=== PATIENT | male | born 1945 | race Caucasian/White ===

== ENCOUNTER → 2019-08-22 15:43 | Outpatient (CLI) | payer MEDICARE, SELFPAY ==
--- NOTE | 2019-08-22 15:46 | CT_ITS ---
CT lower extremity INDICATION: Treatment planning exam COMPARISON: None. TECHNIQUE: Helical axial scans were performed. Coronal reformat images were obtained through the abdomen and pelvis, as well as coronal and sagittal reformats were performed. CT scan done according to ALARA (As Low As Reasonably Achievable). CONTRAST: No contrast was administered. FINDINGS: There are degenerative changes in the lower lumbar spine. SI joints are normal. There is severe degenerative change in the right hip with cystic and sclerotic change and extensive osteophytosis. Left hip is intact and unremarkable. Soft tissues are intact. There is leg discrepancy with the right leg appearing shorter than the left. CT/Extremity Lower without Contra IMPRESSION: Treatment planning scan. Severe right hip degenerative disease. Electronically Signed: Brissa López, at 20:08 EST Tel , Service support ,
== END ==
PROVIDERS: PCP Family Medicine; Referring Provider Specialist; Visit Provider Specialist
DX: M16.11 Unilateral primary osteoarthritis, right hip (principal)
CPT/HCPCS: 73700

== ENCOUNTER 2019-09-11 08:11 | Inpatient (IN) | payer MEDICARE, SELFPAY ==
[2019-08-22 15:12] VITALS: BP 154/81; PULSE 82; RESP 16; TEMP 36.6; O2SAT 98; BMI 33.0
--- NOTE | 2019-08-22 15:20 | SDCEKG_ITS ---
Test Reason : Blood Pressure : / mmHG Vent. Rate : 076 BPM Atrial Rate : 076 BPM P-R Int : 184 ms QRS Dur : 090 ms QT Int : 394 ms P-R-T Axes : 045 014 029 degrees QTc Int : 443 ms Normal sinus rhythm Normal ECG Confirmed by IDALIA FIGUEROA, PORTILLO ([id number]), tape editor JEANETTE LUCAS ([id number]) on 08/26/2019 10:49:31 AM Referred By: Foster Walker Confirmed By:SHERRIE FRIEDMAN MD
[2019-08-22 16:03] LABS: Absolute Lymphocyte Count 2.74 X10^3/uL (0.83-4.51); Absolute Neutrophil Count 8.1 X10^3/uL (2.0-7.7); Basophil# 0.05 X10^3/uL; Basophil% 0.4 % (0-1); Eosinophil# 0.24 X10^3/uL; Hematocrit 46.6 % (40-54); Hemoglobin 15.3 g/dL (13.0-16.5); Lymphocyte # 2.74 X10^3/ul (4.0); Lymphocyte % 22.6 % (19-41); Mean Corp Hgb Conc 32.8 g/dL (32-36); Mean Corpuscular Hgb 28.7 pg (27.0-32.0); Mean Corpuscular Volume 87.3 fL (80-94); Mean Platelet Vol. 10.4 fl (6.2-12.0); Monocyte# 0.88 X10^3/uL; Monocyte% 7.3 % (0-10); NRBC Flagged by Analyzer 0 % (0-5); Neutrophil # 8.14 X10^3/uL (2.7-7.7); Neutrophil % 67.3 % (47-70); Platelet Count 270 K/mm3 (150-450); RBC Distribution Width SD 41.5 fl (35.1-43.9); Red Blood Count 5.34 M/mm3 (4.6-6.2); White Blood Count 12.1 K/mm3 (4.4-11.0)
--- NOTE | 2019-08-23 12:55 | PCM.HP.BLA ---
History and Physical History and Physical [facility] Patient Name: Nathan Robertson : 1945 From: MARIANNE MONTAÑO PA-C DATE OF SURGERY: 09/11/2019 SCHEDULED PROCEDURE: right total hip arthroplasty HISTORY OF PRESENT ILLNESS: Preoperative history and physical exam was performed on August 22, 2019. This is a 73-year-old male who has been having ongoing pain in the right hip for over 3 years. Pain is been intermittent, aching, dull. Pain can reach as high as a 5/10 with activity. Patient does have start up pain. Pain is located over the lateral hip. It occasionally wakes him at night. Patient has difficult time with activities of daily living due to the pain. He has difficulty putting socks and shoes on. Patient does have sensation of catching in the right hip with range of motion. Patient has used [id number] naproxen with minimal relief. He denies previous surgery on the right hip. Patient has been using a cane for the past 2 months due to the pain. We are obtaining surgical clearance from the primary care physician Dr. Livingston. Patient currently denies any chest pain, shortness of breath, fevers chills, recent infections. Patient has medical history pertinent for hypertension. After failing conservative measures and discussing treatment options with Dr. Foster Walker, patient does wish to proceed with a right total hip arthroplasty. REVIEW OF SYSTEMS: ROS: Const: Denies change in appetite, fever and weight change. CV: Denies chest pain, heart murmur and irregular heartbeat. Resp: Denies cough, pneumonia, shortness of breath, tuberculosis and wheezing. GI: Denies constipation, diarrhea, heartburn, nausea, rectal itching, bloody stools and vomiting. : Denies incontinence. Musculo: Denies leg swelling, pain, trouble walking and weakness. Skin: Denies Raynaud's, history of shingles and tattoo. Neuro: Denies ambulatory dysfunction, dizziness, numbness/tingling and tremor. Psych: Denies anxiety, insomnia and stress. Khalif/Lymph: Denies anemia, bleeding/bruising tendency and past transfusion. Reviewed, no changes. PAST MEDICAL HISTORY: Advance Care Plan: Other Directive, LIVING WILL Effective Date: 07/22/2019 Other Directive, POA Effective Date: 07/22/2019 PMH: Medical Problems: Arthritis, High Blood Pressure, Hypercholesterolemia Accidents: None Surgical Hx: None Anesthesia Complications: None Assistive Devices: Glasses, Cane Reviewed, no changes. SOCIAL HISTORY: SH: Marital: .Occupation: Retired.Work Status: Retired.Hand Dominance: Left-handed. Personal Habits: Cigarette Use: Former.Smokeless Tobacco: Never Used Smokeless Tobacco.E-Cigarette Use: Never used.Alcohol: Occasionally.Drug Use: Denies Use.Enjoy Exercising: Daily. Reviewed, no changes. VITALS: Ht: 69 Wt: 216lb Wt k.978 BMI: 31.9 BP: 172/92 Pulse: 56 Resp: 14 T: 97.9 T: 36.6C ALLERGIES: No Known Drug Allergy MEDICATIONS: Simvastatin 20 mg 1 by mouth every day, Amlodipine Besylate 5 mg 1 by mouth every day, Lisinopril-Hydrochlorothiazide 20-25 mg 1 tab by mouth daily PRE-OP EXAM: General appearance:NORMAL Other: Eyes: Conjunctivae and lids: NORMAL Pupils: ERR Ears, Nose, Mouth, and Throat: NORMAL Other: Inspection of lips, teeth and gums: NORMAL Other: Neck: Examination of neck: no masses noted. Respiratory: Assessment of respiratory effort: NORMAL Other: Auscultation of lungs: clear to auscultation no wheezes, rhonchi or rales. Cardiovascular: Auscultation of heart: regular rate and rhythm, no murmurs, gallops or rubs. Exam of carotid arteries: NORMAL Other: Gastrointestinal: Exam of abdomen: soft, nontender, nondistended bowel sounds present. PHYSICAL EXAMINATION: Patient does walk with an antalgic gait. Right hip is cool to touch without erythema. Patient has obligatory external rotation with flexion on the right. Tenderness palpation of the right lateral hip. Right hip flexion 60, internal rotation 25, external rotation 35. There is 5 mm shorter on the right when compared to the left with regards to leg lengths. Sensation intact to light touch. IMAGING STUDIES: X-rays of the right hip reveal joint space narrowing with subchondral sclerosis and osteophyte formation consistent with severe hypertrophic osteoarthritis. There is been progressive worsening of the osteoarthritis when compared to previous films. IMPRESSION: 1. Severe right hip osteoarthritis 2. Hypertension 3. Hypercholesterolemia PLAN: Dr. Foster Walker did discuss and review with the patient all treatment options including surgical versus nonsurgical options. Patient does wish to proceed with the above-stated procedure. Potential risks, benefits, and complications of the procedure were discussed in detail including but not limited to , infection, nerve and blood vessel damage, persistent pain, numbness, tingling, paresthesias, blood clot, pulmonary embolism, and requirement for possible further surgery. The patient expressed full understanding and has no further questions for the doctor. Patient does agree to proceed with the above-stated procedure and has signed the surgery consent form. This dictation was created using voice recognition software. Phonetic and/or grammatical errors may exist. ___ I have re-examined the patient. There are no clinical changes since date of exam. ___ See progress notes for changes. ___ Dictated on admission Date: Time: Signature:
[2019-09-02 12:16] LABS: Absolute Lymphocyte Count 2.54 X10^3/uL (0.83-4.51); Absolute Neutrophil Count 5.8 X10^3/uL (2.0-7.7); Basophil# 0.07 X10^3/uL; Basophil% 0.8 % (0-1); Eosinophil# 0.19 X10^3/uL; Eosinophils% 2.1 % (0-5); Hematocrit 47.9 % (40-54); Hemoglobin 15.3 g/dL (13.0-16.5); Lymphocyte # 2.54 X10^3/ul (4.0); Lymphocyte % 27.4 % (19-41); Mean Corp Hgb Conc 31.9 g/dL (32-36); Mean Corpuscular Hgb 28.1 pg (27.0-32.0); Mean Corpuscular Volume 88.1 fL (80-94); Mean Platelet Vol. 10.5 fl (6.2-12.0); Monocyte# 0.62 X10^3/uL; Monocyte% 6.7 % (0-10); NRBC Flagged by Analyzer 0 % (0-5); Neutrophil # 5.81 X10^3/uL (2.7-7.7); Neutrophil % 62.7 % (47-70); Platelet Count 265 K/mm3 (150-450); RBC Distribution Width CV 12.9 % (11.6-14.6); Red Blood Count 5.44 M/mm3 (4.6-6.2); White Blood Count 9.3 K/mm3 (4.4-11.0)
[2019-09-11] VITALS (10 sets, daily range): BP systolic 108–150; BP diastolic 54–99; PULSE 82–105; RESP 16–18; TEMP 36.2–36.7; O2SAT 94–100; BMI 33.0
[2019-09-11] MEDS: Lactated Ringers 1,000 ML 125 ML IV ×2 (07:10→13:15)
[2019-09-11] MEDS: Scopolamine 1mg/72hr Patch 1 PATCH TD (07:15)
[2019-09-11] MEDS: Lactated Ringers 1,000 ML 999 ML IV (09:10)
[2019-09-11] MEDS: Celecoxib 200 MG Capsule 400 MG PO (09:11)
[2019-09-11] MEDS: Acetaminophen 500 MG Tablet 1000 MG PO ×3 (09:12→21:01)
[2019-09-11] MEDS: Gabapentin 600 MG Tablet PO (09:12)
[2019-09-11 09:26] LABS: Bedside Glucose 94 mg/dL (70-110)
[2019-09-11] MEDS: dexAMETHasone 10 MG/ML Vial IV (10:15)
[2019-09-11] MEDS: Cefazolin 2 GM in 0.9% Normal Saline 100 ML IV (10:15)
--- NOTE | 2019-09-11 10:15 | RAD_ITS ---
STUDY: X-RAY - PELVIS AND RIGHT HIP REASON FOR EXAM: Male, 73 years old. ANTERIOR TOTAL HIP TECHNIQUE: 4 views of the right hip. COMPARISON: Previous CT scan of the pelvis obtained on 08/22/2019 FINDINGS: 4 fluoroscopic images were obtained during a total hip replacement. Eventually the acetabular and femoral components of the total hip replacement were noted in place and appear to be in good position alignment. RAD/Hip 1 view with Pelvis IMPRESSION: A total right hip prosthesis was eventually noted in place in good position and alignment.. Electronically Signed: Hansel Mars, at 14:49 EST Tel , Service support ,
--- NOTE | 2019-09-11 12:20 | PCM.OPRPT ---
Report of Operation Date of Procedure: 09/11/19 Pre-Operative Diagnosis: Right hip primary osteoarthritis Post-Operative Diagnosis: Right hip primary osteoarthritis Surgery/Procedure Performed:: Right minimally invasive direct anterior robotic assisted total hip replacement Description of Surgical Findings:: Stable hip, equal leg lengths cognos architect: Lyn Mitchell Type of Anesthesia:: Spinal Anesthesiologist: Ayo Guillen Special Medications: Standard total joint antibiotics Specimen's removed: Bony cuts Estimated Blood Loss (mL): 150 Fluids Replaced: 100 mL crystalloid Description of Procedure: Components used: 1. Accolade 2 Cadence femoral stem size 6 127? 2. Cadence trident 2 acetabular shell size 56 mm 3. [place] X3 polyethylene F 4. Cadence Biolox delta 36 mm, 0 mm femoral head Brief history operative indications: 73 yo M who failed conservative measures for their hip osteoarthritis. X-rays were consistent with osteoarthritis including joint space narrowing, osteophyte formation and subchondral cysts. Total hip replacement was discussed with the patient with risks and benefits including but not limited to blood loss, DVTs, PEs, neurovascular damage, dislocation, general risks of anesthesia including loss of life. Patient demonstrated an understanding medical clearance is obtained the patient was consented for surgery. Procedure: On the date of procedure the patient's R hip was marked in the preoperative area. Patient was then taken back to the operating room where anesthesia assumed control of the C-spine and airway and administered anesthetic. Patient was transferred to the operating table and placed in the supine position. The hips were placed at the break of the bed and a sacral bump was placed. A checkpoint was placed on the tibial tubercle. The R lower extremity was then prepped out in a sterile fashion using chlorhexidine while the surgeon scrubbed. The PA was vital in the positioning of the patient. Upon reentering the room the R lower extremity was draped in the standard orthopedic fashion and the incision was marked. A timeout was called and everyone agreed upon the side, the site, the procedure be performed, antibody given, and patient's identity. 3 pins were placed in the right iliac crest with a small skin incision and blunt dissection down to the bone. After the skins were placed in a ray was placed for targeting. At this time left hip operative incision was made through skin, subcutaneous tissue, and fat down to fascia. The fascia was then incised and the TFL was retracted laterally. A retractor was placed on the lateral border of the femoral neck. Attention was directed to the inferior portion of the approach and all crossing vessels were identified and appropriately coagulated. A retractor was then placed on the medial portion of the femoral neck. The anterior capsule was then cleared of all soft tissue and then H shaped capsulotomy was made. The retractors were then placed inside the capsule. The checkpoint was placed. The checkpoints were registered. The femoral neck was identified and a cleanup cut was made. At this time a power corkscrew was used to remove the femoral head. Attention was then turned toward the acetabulum where the soft tissues were appropriately retracted and debrided. The acetabulum was registered. The robot was brought into the field sterilely and the acetabulum was reamed to 56 mm. A 56 mm cup was then selected and impacted into place. Acetabular liner was impacted into place and locking mechanism was verified. The position of the acetabular cup was then verified under live fluoroscopy. Attention was then turned to the femur. Soft tissue releases on the medial and lateral femoral neck were appropriately done, the leg was externally rotated and lateralized. A Muniz retractor was placed medially and proximally to the greater trochanter this allowed appropriate visualization and exposure of the femoral canal. Rongeour was then used to remove excess lateral bone. A canal finder and entry broach were used to open the proximal canal. Once we verified we were down the femoral canal we subsequently broached up to a size 6 femur. The appropriate neck was placed in the previously selected head was trialed with a 0 mm neck. Traction was pulled and the hip was reduced with internal rotation. Once it was appropriately reduced and stability was checked. There was minimal shuck, equal leg lengths and appropriate stability with hyperextension and external rotation as well as with 90? flexion and internal rotation. Fluoroscopy was then also used to verify the position of the components and leg lengths using the contralateral side for comparison. The trial components were then dislocated the proximal femur was again exposed and the components were removed from the wound. The final components were verified and opened. The wound was copiously irrigated out with normal saline. The acetabulum was checked for any residual debris. The final components were placed and impacted. Traction and internal rotation were again used to reduce the hip. After adequate reduction the hip remained stable with appropriate leg lengths. The final components were once again checked with live fluoroscopy and were found to be satisfactory. The wound was then copiously irrigated with normal saline once more, and hemostasis was obtained. Closure was then done using #1 Vicryl runner to close the fascia. A 2-0 vicryl interuppted sutures were used to close the subcutaneous skin. A 3-0 Monocryl and Steri-Strips were used for final skin closure. the pins were removed and pin sites closed. A sterile dressing was placed. Patient was awakened by anesthesia and transferred to the [facility]. Patient was then transferred to the PACU for recovery. Postoperative plan: Patient will get 24 hours postop antibiotics. Patient will get in-house physical therapy and will be weight-bear as tolerated. Patient will follow up in office in 2 weeks for a wound check and x-rays. - Complications No intraoperative complications - Admit VTE Documentation VTE Present on Admission: No VTE Mechan Device Prophylaxis: SCD's, Thigh High ARTEMIO Hose VTE Pharm Prophylaxis ordered?: Yes
--- NOTE | 2019-09-11 13:05 | RAD_ITS ---
STUDY: X-RAY - PELVIS AND RIGHT HIP REASON FOR EXAM: Postoperative right hip arthroplasty. TECHNIQUE: 2 views of the pelvis and hip. COMPARISON: Intraoperative images obtained the same day. FINDINGS: There is postoperative gas in the soft tissues. There is a corticated soft tissue ossification adjacent to the right greater trochanter. There is arthrosis of the sacroiliac joints bilaterally. Normal visualized bilateral iliac wings and visualized sacrum. Normal bilateral superior and inferior pubic rami. Normal pubic symphysis. Normal bilateral ischial tuberosities. There is a right total hip arthroplasty without evidence of complication. RAD/Hip Min 2 Views (Portable) IMPRESSION: Uncomplicated right total hip arthroplasty. Electronically Signed: Blayne Andrade MD at 14:54 EST Tel , Service support ,
[2019-09-11] MEDS: Famotidine 20 MG Tablet PO (15:51)
[2019-09-11] MEDS: Senna/Docusate Sodium 1 Tablet 2 TABLET PO ×2 (15:51→21:00)
[2019-09-11] MEDS: Ensure Surgery 237 ML LIQUID PO (18:03)
[2019-09-11] MEDS: Cefazolin 1 GM/50 ML BAG IV (18:03)
[2019-09-11] MEDS: Aspirin 81 MG TAB.CHEW PO (18:03)
[2019-09-11] MEDS: Atorvastatin Calcium 10 MG Tablet 5 MG PO (21:00)
[2019-09-12] MEDS: Cefazolin 1 GM/50 ML BAG IV (02:40)
[2019-09-12 02:45] VITALS: BP 140/74; PULSE 85; RESP 17; TEMP 36.8; O2SAT 95
[2019-09-12 05:31] LABS: Hematocrit 36.6 % (40-54); Hemoglobin 12.2 g/dL (13.0-16.5); Mean Corp Hgb Conc 33.3 g/dL (32-36); Mean Corpuscular Hgb 29.3 pg (27.0-32.0); Mean Corpuscular Volume 87.8 fL (80-94); Mean Platelet Vol. 10.3 fl (6.2-12.0); Platelet Count 220 K/mm3 (150-450); RBC Distribution Width CV 12.7 % (11.6-14.6); RBC Distribution Width SD 40.7 fl (35.1-43.9); Red Blood Count 4.17 M/mm3 (4.6-6.2); White Blood Count 17.8 K/mm3 (4.4-11.0)
[2019-09-12 05:55] LABS: Anion Gap 5 (5-15); BUN 16 mg/dL (7-18); Chloride 106 mmol/L (98-107); Creatinine, Serum 0.76 mg/dL (0.70-1.30); EST Glomerular Filtration Rate 107 mL/min (>60); Est Glom Filt Rate - Afr Amer 129 mL/min (>60); Estimated Creatinine Clearance 67.75 ml/min; Glucose 132 mg/dL (74-106); Sodium Level 139 mmol/L (136-145)
[2019-09-12] MEDS: Acetaminophen 500 MG Tablet 1000 MG PO ×2 (06:23→13:15)
[2019-09-12 07:44] VITALS: BP 140/85; PULSE 98; RESP 16; TEMP 37.2; O2SAT 95
[2019-09-12] MEDS: Famotidine 20 MG Tablet PO (07:46)
[2019-09-12] MEDS: Lisinopril 20 MG Tablet PO (07:46)
[2019-09-12] MEDS: Senna/Docusate Sodium 1 Tablet 2 TABLET PO (07:46)
[2019-09-12] MEDS: Aspirin 81 MG TAB.CHEW PO (07:46)
[2019-09-12] MEDS: amLODIPine 5 MG Tablet PO (07:46)
[2019-09-12] MEDS: hydroCHLOROthiazide 25 MG Tablet PO (07:46)
--- NOTE | 2019-09-12 08:23 | PN.ORTHO_ITS ---
Subjective: The patient was sitting in bedside chair upon examination. Patient denies any chest pain, shortness of breath, dizziness, lightheadedness, nausea or vomiting, or calf pain. Pain is controlled on medications. No adverse overnight events. Overall patient is doing very well. He has not required any narcotics at this time. Patient wishes to go home today. Objective: Vital signs stable and afebrile. Patient is able to plantarflex and dorsiflex actively. Sensation is intact to light touch to saphenous, sural, superficial and deep peroneal, and tibial distribution. Dressing is clean dry and intact. Negative Homans bilaterally, negative signs and symptoms of DVT. - Physical Exam Vitals/I&O's: Vital Signs Temp Pulse Resp BP Pulse Ox 99 F 98 16 140/85 H 95 09/12/19 07:44 09/12/19 07:44 09/12/19 07:44 09/12/19 07:44 09/12/19 07:44 Oxygen Flow Rate (L/min) 6 Oxygen Delivery Method Room Air Weight: 101.7 kg Body Mass Index (BMI) 33.0 Intake and Output for Last 24 Hours 09/10/19 09/11/19 09/12/19 23:59 23:59 23:59 Intake Total 3522.08 / 3522.08 1847.92 / 1847.92 Output Total 400 / 400 1700 / 1700 Balance 3122.08 / 3122.08 147.92 / 147.92 General: Alert, Oriented x3, Cooperative, No apparent distress Laboratory Results 09/11/19 08:51: POC Glucose 94 09/12/19 05:05: WBC 17.8 H, RBC 4.17 L, Hgb 12.2 L, Hct 36.6 L, MCV 87.8, MCH 29.3, MCHC 33.3, RDW Std Deviation 40.7, RDW Coeff of Leobardo 12.7, Plt Count 220, MPV 10.3 09/12/19 05:05: Sodium 139, Potassium 4.0, Chloride 106, Carbon Dioxide 28.0, Anion Gap 5, BUN 16, Creatinine 0.76, Estim Creat Clear Calc 67.75, Est GFR (MDRD) Af Amer 129, Est GFR (MDRD) Non-Af 107, BUN/Creatinine Ratio 21.0 H, Glucose 132 H, Calcium 9.0 Current Medications Acetaminophen (Tylenol) 1,000 mg PO Q8 [facility] Last Admin: 09/12/19 06:23 Dose: 1,000 mg Documented by: Amlodipine Besylate (Norvasc) 5 mg PO DAILY [facility] Last Admin: 09/12/19 07:46 Dose: 5 mg Documented by: Aspirin (Aspirin, Baby) 81 mg PO BIDCM [facility] Last Admin: 09/12/19 07:46 Dose: 81 mg Documented by: Atorvastatin Calcium (Lipitor) 5 mg PO QHS [facility] Last Admin: 09/11/19 21:00 Dose: 5 mg Documented by: Enteral Nutritional Formula (Ensure Surgery) 237 ml PO TIDCM [facility] Last Admin: 09/12/19 07:46 Dose: Not Given Documented by: Famotidine (Pepcid) 20 mg PO DAILY [facility] Last Admin: 09/12/19 07:46 Dose: 20 mg Documented by: Hydrochlorothiazide (Hctz) 25 mg PO DAILY [facility] Last Admin: 09/12/19 07:46 Dose: 25 mg Documented by: Ketorolac Tromethamine (Toradol (Bkc)) 15 mg IV Q6H PRN PRN PRN Reason: Pain Score 1-5/10 Stop: 09/13/19 07:11 Lisinopril (Zestril) 20 mg PO DAILY [facility] Last Admin: 09/12/19 07:46 Dose: 20 mg Documented by: Meloxicam (Mobic) 7.5 mg PO BID [facility] Ondansetron HCl (Zofran) 4 mg IV Q8H PRN PRN PRN Reason: NAUSEA Promethazine HCl (Phenergan) 12.5 mg IM Q6H PRN PRN; Protocol PRN Reason: NAUSEA/VOMITING Senna/Docusate Sodium (Senokot-S, Jo-Colace) 2 tablet PO BID [facility] Last Admin: 09/12/19 07:46 Dose: 2 tablet Documented by: Sodium Chloride () 10 - 40 ml IV UD PRN PRN Reason: SALINE FLUSH Tramadol HCl (Ultram) 50 - 100 mg PO Q6H PRN PRN PRN Reason: Pain Score 4-10/10 Medical Necessity - Tobacco Use Smoking Status: Former smoker Tobacco Use: Non-smoker Assessment/Plan 1. S/P right direct anterior total hip arthroplasty POD #1 2. Continue Pain Medications: Tylenol, meloxicam primarily for pain control. Tramadol for breakthrough pain 3. DVT Prophylaxis: Take 81 mg aspirin twice daily for 4 weeks postoperatively for DVT prophylaxis 4. PT/OT: Weightbearing as tolerated 5. H & H: 12.2/36.6, asymptomatic 6. Reactive leukocytosis: Currently 17.8, afebrile. Patient did receive Decadron intraoperatively 7. Encouraged Incentive Spirometry 8. Disposition: Plan will be for discharge home today if patient tolerates physical therapy and pain is controlled. Prescriptions will be E scribed to [facility]. Tramadol will be printed and only be filled if patient requires this at home. Patient will follow-up per postop instructions. Outpatient physical therapy has been established. I have reviewed the [place] Automated Rx Reporting System (OARRS) report for this patient for refill pattern and other prescriber involvement as part of the appropriate surveillance for the provision of acute and chronic controlled medications. The report was requested and reviewed on the date of this entry and was considered in the prescribing process.
--- NOTE | 2019-09-12 08:29 | DCINST_ITS ---
Discharge Diet: No Restrictions May shower in (days): 1 - Dressings must be intact to skin, turn dressing away from water Ice area for (Minutes): 20 - Every 1-2 hours while awake Weight Bearing Status: Weight bearing as tolerated Elevate: Operative Extremity Additional Activity Instructions:: Continue with ARTEMIO hose for 2 weeks postoperatively. Okay to remove at nighttime but must be worn during the day. Remove Dressing in (days):: 4 - Okay to remove dressing on September 16, 2019 Additional Instructions: Follow orthopedic postop instructions Allergies/Adverse Reactions: Allergies No Known Allergies Allergy (Verified 09/11/19 08:38) Medications to take at Discharge Amlodipine Besylate [Norvasc] 5 mg PO DAILY 08/22/19 Lisinopril/Hydrochlorothiazide [Lisinopril-Hctz 20-25 mg Tab] 1 ea PO DAILY 08/22/19 Simvastatin [Zocor] 10 mg PO QHS 08/22/19 Acetaminophen [Tylenol] 1,000 mg PO Q8 #100 tab 09/12/19 Aspirin [Aspirin, Baby] 81 mg PO BIDCM tab 09/12/19 Famotidine [Pepcid] 20 mg PO DAILY #30 tab 09/12/19 Meloxicam [Mobic] 7.5 mg PO BID #60 tab 09/12/19 Senna/Docusate Sodium [Senokot-S] 2 tab PO BID #10 tab 09/12/19 traMADol [Ultram] 50 - 100 mg PO Q6H PRN PRN 4 Days #30 tab 09/12/19 The following prescriptions were given: Meloxicam [Mobic] 7.5 mg PO BID #60 tab Transmission Status: Pending to [facility] Famotidine [Pepcid] 20 mg PO DAILY #30 tab Transmission Status: Pending to [facility] Senna/Docusate Sodium [Senokot-S] 2 tab PO BID #10 tab Transmission Status: Pending to [facility] Acetaminophen [Tylenol] 1,000 mg PO Q8 #100 tab Transmission Status: Pending to [facility] traMADol [Ultram] 50 - 100 mg PO Q6H PRN PRN 4 Days #30 tab PRN Reason: Pain Score 4-10/10 Prescription Printed Primary Care Physician: Wale Livingston III, MD [Primary Care Provider] - Test Results: Test results from this visit will be discussed in further detail at your follow- up appointment, if applicable. Please Follow Up With: [facility] When: 09/16/19 @ 11:00 am Please Follow Up With: Rajendra Goodman PA-C When: 09/25/19 @ 11:00 am
--- NOTE | 2019-09-12 10:50 | CASEMGMT ---
SADE SANCHEZ Face to Face with patient for initial transition planning/care coordination assessment. RN CM introduced self and role at [facility]. Patient sitting in chair, alert and oriented, family at bedside. Patient willing to participate in assessment and is able to answer all questions appropriately. Care providers, pharmacy, and demographics verified. Patient wishes to discharge home and is setup with [facility] for outpatient therapy. Patient states he has no further needs or concerns at this time. CM to follow for discharge planning needs that may arise. PCP: Miki Specialists: Ciara Walker Preferred Pharmacy: [facility] Retail Insurance: [employer] Prescription Benefit: yes Living Will/HPOA: yes, Rhea Robertson LNOK: , son Living Arrangements: Patient lives with in 2 story home with railing to second floor. Patient independent prior to surgery Transportation: Son DME/HHC: Patient has walker and cane at home. Patient is scheduled for outpatient therapy at [facility] on Monday. Disposition Plan: Patient to discharge home with outpatient therapy, family support, and follow-up plans in place. Reba FULLER, RN, CM
[2019-09-12 13:16] VITALS: BP 146/79; PULSE 83; RESP 14; TEMP 36.4; O2SAT 98
== END 2019-09-12 13:55 | disposition home or self-care (01) | DRG 470 ==
LOC: ACINP 08:12 → MS3 09-12 08:34
PROVIDERS: Admitting Provider Specialist; Family Provider Family Medicine; PCP Family Medicine; Referring Provider Specialist; Visit Provider Specialist
PROC: 8E0Y0CZ Robotic Assisted Procedure of Lower Extremity, Open Approach (ICD-10-PCS; CPT 27130; principal; 2019-09-11 09:45)
DX: M16.11 Unilateral primary osteoarthritis, right hip (principal); I10 Essential (primary) hypertension; E78.00 Pure hypercholesterolemia, unspecified; Z87.891 Personal history of nicotine dependence
CPT/HCPCS: 36415; 73501; 73502; 76000; 80048; 82962; 85025; 85027; 87081; 93005; 97110; 97162; 97166; 97530; 97535; 99251; C1776; J7120; G0463

== ENCOUNTER 2020-09-22 16:07 | Outpatient (RCR) | payer MEDICARE, SELFPAY ==
[2019-09-11 08:41] VITALS: BMI 33.0
[2020-09-22] MEDS: COVID-19 VACC, MRNA(PFIZER)/PF 30 MCG/0.3 ML SYRINGE IM (14:14)
[2020-10-13] MEDS: COVID-19 VACC, MRNA(PFIZER)/PF 30 MCG/0.3 ML SYRINGE IM (13:59)
== END 2020-12-22 23:59 ==
LOC: IMMUN 16:07
PROVIDERS: PCP Family Medicine; Visit Provider Family Medicine
DX: Z23 Encounter for immunization (principal)
CPT/HCPCS: 0001A; 0002A; 91300

== ENCOUNTER → 2020-10-22 10:02 | Outpatient (CLI) | payer MEDICARE, SELFPAY ==
[2019-09-11 08:41] VITALS: BMI 33.0
[2020-10-22 11:17] LABS: Hematocrit 47.7 % (40-54); Hemoglobin 15.6 g/dL (13.0-16.5); Mean Corp Hgb Conc 32.7 g/dL (32-36); Mean Corpuscular Hgb 28.8 pg (27.0-32.0); Mean Corpuscular Volume 88.2 fL (80-94); Platelet Count 349 K/mm3 (150-450); RBC Distribution Width CV 12.9 % (11.6-14.6); RBC Distribution Width SD 41.9 fl (35.1-43.9); Red Blood Count 5.41 M/mm3 (4.6-6.2); White Blood Count 12.6 K/mm3 (4.4-11.0)
[2020-10-22 11:58] LABS: ALB/GLOB Ratio 0.9 RATIO (0.9-2.4); AST(SGOT) 12 U/L (15-37); Alanine Aminotransfer ALT/SGPT 27 U/L (16-61); Albumin, Serum 3.5 g/dL (3.2-5.0); Alkaline Phosphatase 98 U/L (45-117); Anion Gap 4 (5-15); BUN 14 mg/dL (7-18); Calcium,Total 9.8 mg/dL (8.5-10.1); Chloride 104 mmol/L (98-107); Cholesterol 117 mg/dL (200); EST Glomerular Filtration Rate 118 mL/min (>60); Est Glom Filt Rate - Afr Amer 142 mL/min (>60); Globulin 3.9 g/dL (2.2-4.2); Glucose 100 mg/dL (74-106); High Density Lipoprotein 36 mg/dL; PSA,Total- Diagnostic 6.11 ng/mL (0.0-4.0); Potassium 3.6 mmol/L (3.5-5.1); Protein, Total 7.4 g/dL (6.4-8.2); Sodium Level 137 mmol/L (136-145); Triglycerides 74 mg/dL; Very Low Density Lipoprotein 15 mg/dL (5-40)
== END ==
PROVIDERS: PCP Family Medicine; Visit Provider Family Medicine
DX: E78.5 Hyperlipidemia, unspecified (principal); Z13.1 Encounter for screening for diabetes mellitus; I10 Essential (primary) hypertension; N40.0 Benign prostatic hyperplasia without lower urinary tract symptoms
CPT/HCPCS: 36415; 80053; 80061; 84153; 85027

== ENCOUNTER → 2020-10-30 10:32 | Outpatient (CLI) | payer MEDICARE, SELFPAY ==
[2019-09-11 08:41] VITALS: BMI 33.0
[2020-10-31 20:06] LABS: PSA, Free 0.94 ng/mL; PSA, Free % 14.7 % (.); PSA, Total Ultrasensitive 6.4 ng/mL (0.0-4.0)
== END ==
PROVIDERS: PCP Family Medicine; Referring Provider Family Medicine; Visit Provider Family Medicine
DX: R97.20 Elevated prostate specific antigen [PSA] (principal)
CPT/HCPCS: 36415; 84153; 84154

== ENCOUNTER → 2020-12-08 11:18 | Outpatient (CLI) | payer MEDICARE, SELFPAY ==
[2019-09-11 08:41] VITALS: BMI 33.0
--- NOTE | 2020-12-08 | IMM_PTH ---
PATIENT: NOLAN BURR LOC: [facility] U#:[id number] AGE/SX: 79/M ROOM: RE12/08/[address]: Dr. Ridge Lowery MD : 1945 BED: DIS: SPEC #: [id number] RECD: 12/09/20 12:39 STATUS: PHILLIP REQ #: [id number] DRE: 12/08/20 00:[address]: Ridge Lowery DEPT: IMMUNOHISTOCHEMISTRY RECD BY: Pearl Medley ENTERED: 12/09/20 12:40 SP TYPE: IMMUNO OTHR DR: Dr. Wale Livingston III, MD Tissues: A - PROSTATE RIGHT F - PROSTATE LEFT Procedures: 34BE12 (add) P40 (add) 34BE12 (initial) PHYSICIAN & INSTITUTION [place] [address] SPECIMEN INFORMATION: Tissue Source: A - Right prostate, apex, core biopsy, F - Left prostate, base, core biopsy Clinical Info: R97.20 Specimen Number: [id number] A & F CPT code: 02747, 58749 x3 METHODOLOGY: Deparaffinized sections of prefer/formalin-fixed tissue or PAP/DQ stained slides are incubated with monoclonal/polyclonal antibodies/oligonucleotide probes. Localization is made via biotin free immunoperoxidase method. Appropriate controls are performed and reacted as expected. Results on target cell population are indicated in the following table: RESULTS: ANTIBODY / CLONE RESULT Block A P40 (BC28) negative 34BE12 (34BE12) negative Block F P40 (BC28) negative 34BE12 (34BE12) negative These tests were developed and their performance characteristics determined by [facility]. They may not have been cleared or approved by the U.S. Food and Drug Administration. The FDA has determined that such clearance or approval is not necessary. The above immunohistochemical/dualISH markers are ordered and reviewed by the Pathologist. INTERPRETATION: A. Right prostate, apex, core biopsy: Adenocarcinoma. F. Left prostate, base, core biopsy: Adenocarcinoma. SJ:suyapa 12/10/2020
--- NOTE | 2020-12-08 08:00 | PROSBIL_PTH ---
PATIENT: NOLAN BURR LOC: [facility] U#:[id number] AGE/SX: 79/M ROOM: RE12/08/[address]: Dr. Ridge Lowery MD : 1945 BED: DIS: SPEC #: [id number] RECD: 12/08/20 11:10 STATUS: PHILLIP FIDEL #: [id number] DRE: 12/08/20 08:[address]: Ridge Lowery DEPT: SURGICAL PATHOLOGY RECD BY: Carito Sepulveda ENTERED: 12/08/20 11:44 SP TYPE: PROST BX SIMON DR: Dr. Wale Livingston III, MD Tissues: A - PROSTATE RIGHT B - PROSTATE RIGHT C - PROSTATE RIGHT D - PROSTATE LEFT E - PROSTATE LEFT F - PROSTATE LEFT Procedures: PROSTATE BX HEADER OPERATION: Prostate biopsy PRE-OP DIAGNOSIS: R97.20 TISSUE SUBMITTED: A - Right apex, B - Right mid, C - Right base, D - Left apex, E - Left mid, F - Left base MICROSCOPIC DIAGNOSIS A. Right prostate, apex, core biopsy: Prostatic adenocarcinoma. Troy grade: 3+4=7 Number of cores involved: 1/2 Proportion of tissue involved: ~5-10% Perineural invasion: Not identified. Greatest tumor length: 0.2 cm Focal chronic inflammation. See comment. B. Right prostate, mid, core biopsy: Prostatic adenocarcinoma. Ivett grade: 3+4=7 Number of cores involved: 2/2 Proportion of tissue involved: ~60% Perineural invasion: present, focal Greatest tumor length: 1 cm, discontinuous C. Right prostate, base, core biopsy: Prostatic adenocarcinoma. Ivett grade: 4+3=7 Number of cores involved: 2/2 Proportion of tissue involved: ~60% Perineural invasion: Present, frequent. Greatest tumor length: 1.2 cm, discontinuous. D. Left prostate, apex, core biopsy: Prostatic tissue, negative for malignancy. Focal atrophy. E. Left prostate, mid, core biopsy: Prostatic tissue, negative for malignancy. F. Left prostate, base, core biopsy: Prostatic adenocarcinoma. Troy grade: 3+3=6 Number of cores involved: 1/3 Proportion of tissue involved: <5% Perineural invasion: Not identified. Greatest tumor length: 0.6 cm, discontinuous. Focal high-grade prostatic intraepithelial neoplasia (HGPIN). See comment. SJ:suyapa 12/09/20 COMMENT A & F - Immunohistochemistry ([id number]) supports the above diagnosis. Case has been reviewed in consultation with Dr. Monet who concurs with the above diagnosis. IDC:AM MICROSCOPIC DESCRIPTION Slides are reviewed. GROSS DESCRIPTION A - Received is one container designated prostate, right apex. The specimen consists of two elongated fragments of light cramer-white soft tissue each measuring 1.5 cm in length and 0.1 cm in diameter. The specimen is totally submitted in one cassette. B - Received is one container designated prostate, right mid. The specimen consists of two elongated fragments of light cramer-white soft tissue each measuring 1.5 cm in length and 0.1 cm in diameter. The specimen is totally submitted in one cassette. C - Received is one container designated prostate, right base. The specimen consists of two elongated fragments of light cramer-white soft tissue each measuring 1.5 cm in length and 0.1 cm in diameter. The specimen is totally submitted in one cassette. D - Received is one container designated prostate, left apex. The specimen consists of two elongated fragments of light cramer-white soft tissue measuring 1 and 1.3 cm in length and 0.1 cm in diameter. The specimen is totally submitted in one cassette. E - Received is one container designated prostate, left mid. The specimen consists of two elongated fragments of light cramer-white soft tissue each measuring 1 cm in length and 0.1 cm in diameter. The specimen is totally submitted in one cassette. F - Received is one container designated prostate, left base. The specimen consists of three elongated fragments of light cramer-white soft tissue measuring 0.3 and 1.2 cm in length and 0.1 cm in diameter. The specimen is totally submitted in one cassette. / JOHANA:suyapa 12/08/20 TC:0 CPT: G0146
== END ==
PROVIDERS: PCP Family Medicine; Visit Provider Urology
DX: R97.20 Elevated prostate specific antigen [PSA] (principal)
CPT/HCPCS: 88305; 88341; 88342; G0416

== ENCOUNTER → 2020-12-22 10:10 | Outpatient (CLI) | payer MEDICARE, SELFPAY ==
[2019-09-11 08:41] VITALS: BMI 33.0
--- NOTE | 2020-12-22 10:16 | NM_ITS ---
CLINICAL: 75-year-old male with reported history of carcinoma of the prostate. WHOLE BODY 99m Tc MDP RADIONUCLIDE BONE SCINTIGRAPHY COMPARISON: None available FINDINGS: Following the intravenous administration of approximately 25.0 mCi of 99m Tc MDP, whole body bone images reveal: 1. Increased radiopharmaceutical concentration is identified in the sternoclavicular compartments of both shoulders, acromioclavicular compartment of the left shoulder, the upper cervical spine posteriorly on the left, mid cervical spine posteriorly on the right, bilateral wrists and hands, knees bilaterally, the posterior compartment of the left ankle. 2. The remaining skeletal structures are scintigraphically unremarkable with normal-appearing renal images and urinary bladder activity identified. Facilitated tracer distribution is defined in the trochanteric and distal femoral components of the presumably asymptomatic right hip prosthesis most consistent with normal postsurgical change. An asymmetric increase in tracer uptake is noted in the right supraorbital region most consistent with a normal variant in the distribution of the frontal zygomatic suture. NM/Bone Scan Whole Body IMPRESSION: 1. The increase in radiopharmaceutical concentration defined in the right lateral shoulders, cervical spine, right and left wrists, both hands, knee articulations bilaterally, the left ankle is most consistent with degenerative arthritis. 2. There is no definitive typical scintigraphic evidence of diffuse axial skeletal metastatic disease on the current examination. Electronically Signed: Jaren Barragan DO at 8:09 EDT Tel , Service support ,
== END ==
PROVIDERS: PCP Family Medicine; Referring Provider Urology; Visit Provider Urology
DX: C61 Malignant neoplasm of prostate (principal)
CPT/HCPCS: 78306; A9503

== ENCOUNTER 2021-02-03 08:36 | Day surgery (SDC) | payer MEDICARE, SELFPAY ==
[2019-09-11 08:41] VITALS: BMI 33.0
[2021-02-03 09:16] VITALS: BP 138/83; PULSE 93; RESP 16; TEMP 36.7; O2SAT 99; BMI 31.3
[2021-02-03] MEDS: Lactated Ringers 1,000 ML 100 ML IV (09:21)
[2021-02-03] MEDS: Cefazolin 2 GM in 0.9% Normal Saline 100 ML IV (10:21)
--- NOTE | 2021-02-03 10:25 | PCM.HP.STD ---
HPI - General HPI Narrative 75 M who presents is a for placement of spacer gel and markers for prostate cancer treatment PFSH Medical History (Updated 02/03/21 @ 10:[address] Ridge Lowery MD) Cancer Former smoker High cholesterol Hypertension Prostate disease Wears glasses Home Medications amlodipine 5 mg PO DAILY 08/22/19 [History Last Taken 02/03/21 06:00] lisinopril-hydrochlorothiazide 1 ea PO DAILY 08/22/19 [History Last Taken Unknown] simvastatin 20 mg PO QHS 08/22/19 [History Last Taken Unknown] ciprofloxacin HCl [Cipro] 500 mg PO BID #14 tab 02/03/21 [Rx Last Taken Unknown] Allergy/AdvReac Type Severity Reaction Status Date / Time No Known Allergies Allergy Verified 02/03/21 09:15 Surgical History (Updated 01/27/21 @ 13:01 by Juany Telles) S/P total knee replacement Social History Smoking Status: Former smoker ROS Constitutional Constitutional: Denies chills, fever(s) or malaise Eyes Eyes: Denies blurry vision or change in vision ENT HEENT: Reports none Cardiovascular Cardiovascular: Denies chest pain or palpitations Respiratory/Chest Respiratory/Chest: Denies cough or shortness of breath with exertion Gastrointestinal Gastrointestinal: Denies abdominal pain, constipation or diarrhea Musculoskeletal Musculoskeletal: Denies back pain, joint stiffness or joint swelling Integumentary Integumentary: Denies dry skin, jaundice, lesions or rash Neurologic Neurologic: Denies confusion, syncope or weakness Psychiatric Psychiatric: Reports none; Denies anxiety or depression Endocrine Endocrinology: Denies excessive sweating, fatigue or flushing Hematologic/Lymphatic Hematologic/Lymphatic: Denies anemia, easy bleeding or easy bruising Vital Signs Vital Signs Vital Signs: 02/03/21 09:16 Temperature 98.1 F Temperature Source Temporal Pulse Rate 93 Respiratory Rate 16 Respiratory Pattern Normal Blood Pressure 138/83 H Blood Pressure Mean 101 Blood Pressure Source Monitor Blood Pressure Position Sitting Blood Pressure Location Right Arm Pulse Ox 99 Oxygen Delivery Method Room Air Weight Weight: 93.5 kg Body Mass Index (BMI) 31.3 Physical Exam Const alert and oriented x3 General Appearance: cooperative HEENT normocephalic, head/scalp atraumatic, EAC's normal and TM's normal bilaterally Eyes PERRL and EOMs intact bilaterally Pupil: sluggish Neck no lymphadenopathy, supple and no JVD General: trachea midline Lymph Lymphatic: no lymphadenopathy noted, lymphedema and lymphadenopathy Resp normal respiratory effort, normal air movement and clear to auscultation bilaterally Cardio regular rate, regular rhythm and peripheral pulses 2+ throughout GI soft to palpation, non-tender and non-distended Extremity normal capillary refill and no clubbing, cyanosis or edema General Extremity: no tenderness to palpation of joints or extremities Skin no rashes or lesions noted General Skin Exam: turgor normal Lesions: no lesions Rashes: no rashes Neuro CN's II-XII intact bilaterally Speech: speech normal Motor Exam: strength 5/5 throughout; Negative for general weakness Psych thought process normal, cooperative and affect normal Appearance: appropriate Assessment & Plan Assessment/Plan (1) Prostate cancer: PLAN: Plan to proceed with placement of spacer gel and gold markers.
--- NOTE | 2021-02-03 10:26 | PCM.DC ---
Discharge Instructions Diet Discharge Diet: No restrictions Activity Discharge Activity: Return to Normal Activity and May Not Drive (while taking narcotic pain medications.) Dressing / Incision Call your doctor if you observe: Fever of 101 or Higher Follow Up Care Please Follow Up With: Ridge Lowery MD When: Call [phone] for an appointment Test Results: Test results from this visit will be discussed in further detail at your follow-up appointment, if applicable. Discharge Plan Admission Primary Reason for Your Visit: placement markers and spacer gel Attending Provider: Ridge Lowery Primary Care Provider: Jus Rutledge Discharge Orders/Prescriptions Prescriptions: New ciprofloxacin HCl [Cipro] 500 mg tablet 500 mg PO BID Qty: 14 RF: 0 Continued simvastatin 10 MG tablet 20 mg PO QHS RF: 0 amlodipine 5 MG tablet 5 mg PO DAILY RF: 0 lisinopril-hydrochlorothiazide 1 EACH tablet 1 ea PO DAILY RF: 0 Referrals / Follow Up: Ridge Lowery MD [STAFF PHYSICIAN] - Jus Rutledge MD [Primary Care Provider] - Disposition Disposition (needs filled in before D/C Order can be placed): Home, Self Care
--- NOTE | 2021-02-03 10:38 | PCM.OPRPT ---
Report of Operation Date of Procedure: 02/03/21 Pre-Operative Diagnosis: Prostate cancer Post-Operative Diagnosis: Same Surgery/Procedure Performed:: Transperineal placement of gold fiducial markers and transperineal placement spacer gel matrix. Description of Surgical Findings:: Patient was taken back to the operating room, after induction of anesthesia, he was placed in dorsolithotomy position. The patient had a bowel prep preoperatively. He was given IV antibiotics preoperatively. He underwent a timeout procedure. He was marked and the procedure was reviewed with the operating room staff. Once he was in dorsolithotomy position. The genitals and perineum were prepped and draped in the usual sterile fashion. I then introduced a biplanar ultrasound probe into the rectum and performed ultrasonography on the prostate. The prostate seminal vesicles, the base, the mid prostate, the apex were identified. The Denonvilliers' fascia was also identified. I first advanced the first marker in the patient's right side to the mid prostate and deployed the first auxiliary powerplant operator. The second auxiliary powerplant operator was then advanced under ultrasound guidance to the patient's left mid prostate . And finally the third auxiliary powerplant operator was advanced of the prostate left apex and deployed under ultrasound guidance. All 3 markers were confirmed to be present within the prostate on ultrasonography. The genitals and perineum were prepped and draped in usual sterile fashion. I then introduced a biplanar ultrasound probe into the rectum and performed ultrasonography and identified the Denonvilliers' fascia the prostate mid base and apex and seminal vesicles. The spacer gel mix was then prepared on the back table per manufactures instruction. Under ultrasound guidance in the midline perineum a bevel needle down we advanced through the perineum below the prostate into the space of Denonvilliers' fascia. This space which could be identified by ultrasound with a bright white layer between the prostate and the rectum. I then injected a puff of normal saline to identify the space further. After I confirmed that the needle was in the correct space in the mid prostate and the space of Denonvilliers' fascia between the rectum and the prostate. Then over the course of 15 seconds the gel matrix was injected slowly there was nice separation between the prostate and the rectum at the gel matrix was injected. The position of the gel matrix was confirmed by ultrasound. Then the injection needle was removed intact. Patient's perineum was cleaned patient was taken out of stirrups and then taken back to the PACU in good condition. Surgeon: janina Type of Anesthesia: General Admit VTE Documentation VTE Present on Admission: No VTE Mechan Device Prophylaxis: SCD's
[2021-02-03 10:46] VITALS: BP 107/60; BP 138/83; PULSE 68; RESP 16; TEMP 36.4; O2SAT 98
[2021-02-03 11:00] VITALS: BP 103/64; BP 138/83; PULSE 70; RESP 16; O2SAT 99
[2021-02-03 11:08] VITALS: BP 127/73; BP 138/83; PULSE 72; RESP 16; TEMP 36.1; O2SAT 98
[2021-02-03 11:53] VITALS: BP 138/83; BP 174/71; PULSE 83; RESP 16; TEMP 36.3; O2SAT 99
== END 2021-02-03 11:55 | disposition home or self-care (01) ==
LOC: SDC 08:43 → AC 08:44
PROVIDERS: PCP Family Medicine; Visit Provider Urology
PROC: (CPT 55874; principal; 2021-02-03 10:45)
DX: C61 Malignant neoplasm of prostate (principal); I10 Essential (primary) hypertension; E78.00 Pure hypercholesterolemia, unspecified; Z79.899 Other long term (current) drug therapy; Z87.891 Personal history of nicotine dependence
CPT/HCPCS: 00902; 55874; 55876; J7120; J2405

== ENCOUNTER → 2021-02-16 13:19 | Outpatient (CLI) | payer MEDICARE, SELFPAY ==
[2021-02-03 09:16] VITALS: BMI 31.3
[2021-02-16 15:05] LABS: Absolute Neutrophil Count 5.8 X10^3/uL (2.0-7.7); Basophil# 0.04 X10^3/uL; Basophil% 0.4 % (0-1); Eosinophil# 0.16 X10^3/uL; Eosinophils% 1.8 % (0-5); Hematocrit 47.2 % (40-54); Hemoglobin 15.1 g/dL (13.0-16.5); Lymphocyte % 24.4 % (19-41); Mean Corpuscular Hgb 28.3 pg (27.0-32.0); Mean Corpuscular Volume 88.6 fL (80-94); Mean Platelet Vol. 10.3 fl (6.2-12.0); Monocyte# 0.76 X10^3/uL; Monocyte% 8.4 % (0-10); NRBC Flagged by Analyzer 0 % (0-5); Neutrophil # 5.81 X10^3/uL (2.7-7.7); Neutrophil % 64.7 % (47-70); Platelet Count 299 K/mm3 (150-450); RBC Distribution Width CV 13.2 % (11.6-14.6); RBC Distribution Width SD 42.5 fl (35.1-43.9); Red Blood Count 5.33 M/mm3 (4.6-6.2)
[2021-02-16 15:18] LABS: Creatinine, Serum 0.65 mg/dL (0.70-1.30); EST Glomerular Filtration Rate 128 mL/min (>60); Est Glom Filt Rate - Afr Amer 155 mL/min (>60); PSA,Total- Diagnostic 5.49 ng/mL (0.0-4.0)
== END ==
PROVIDERS: PCP Family Medicine; Referring Provider Radiology Radiation Oncology; Visit Provider Radiology Radiation Oncology
DX: Z01.818 Encounter for other preprocedural examination (principal); C61 Malignant neoplasm of prostate
CPT/HCPCS: 36415; 82565; 84153; 85025

== ENCOUNTER → 2021-02-17 13:40 | Outpatient (CLI) | payer MEDICARE, SELFPAY ==
[2021-02-03 09:16] VITALS: BMI 31.3
--- NOTE | 2021-02-17 13:53 | CT_ITS ---
STUDY: CT PELVIS WITH CONTRAST REASON FOR EXAM: Male, 75 years old. PROSTATE CA RADIATION DOSAGE (If Supplied By Facility): CTDIvol = ( 27.63 ) mGy, DLP = ( 1815.82 ) mGycm TECHNIQUE: Transaxial imaging of the pelvis was performed without oral contrast. IV 100ML ISOVUE 300 was administered intravenously. Individualized dose optimization techniques were used for this CT. COMPARISON: None. FINDINGS: Normal urinary bladder. Normal visualized small intestine. Normal visualized colon. There is no pelvic fluid. There is no pelvic lymphadenopathy or mass lesion. There is enlargement of the prostate gland. Normal visualized pelvic arteries. Small bilateral inguinal hernias containing fat. Status post right hip arthroplasty which produces streak artifact and obscures the pelvis. CT/CT Pelvis W/CONT Therapy IMPRESSION: No acute abnormality. Electronically Signed: Jaren Vail MD at 15:28 EDT Tel , Service support ,
== END ==
PROVIDERS: PCP Family Medicine; Referring Provider Radiology Radiation Oncology; Visit Provider Radiology Radiation Oncology
DX: C61 Malignant neoplasm of prostate (principal)
CPT/HCPCS: 51600; 72193; Q9965; Q9967

== ENCOUNTER → 2021-03-17 10:26 | Outpatient (CLI) | payer MEDICARE, SELFPAY ==
[2021-03-17 12:15] LABS: Absolute Lymphocyte Count 1.45 X10^3/uL (0.83-4.51); Absolute Neutrophil Count 4.7 X10^3/uL (2.0-7.7); Basophil# 0.06 X10^3/uL; Basophil% 0.8 % (0-1); Eosinophil# 0.32 X10^3/uL; Eosinophils% 4.5 % (0-5); Hematocrit 45.6 % (40-54); Hemoglobin 14.9 g/dL (13.0-16.5); Lymphocyte # 1.45 X10^3/ul (0.83-4.51); Lymphocyte % 20.3 % (19-41); Mean Corp Hgb Conc 32.7 g/dL (32-36); Mean Corpuscular Volume 88.9 fL (80-94); Mean Platelet Vol. 10.2 fl (6.2-12.0); Monocyte% 8.4 % (0-10); NRBC Flagged by Analyzer 0 % (0-5); Neutrophil # 4.68 X10^3/uL (2.7-7.7); Neutrophil % 65.7 % (47-70); Platelet Count 223 K/mm3 (150-450); RBC Distribution Width CV 12.7 % (11.6-14.6); RBC Distribution Width SD 41.4 fl (35.1-43.9); Red Blood Count 5.13 M/mm3 (4.6-6.2); White Blood Count 7.1 K/mm3 (4.4-11.0)
== END ==
PROVIDERS: PCP Family Medicine; Referring Provider Radiology Radiation Oncology; Visit Provider Radiology Radiation Oncology
DX: C61 Malignant neoplasm of prostate (principal)
CPT/HCPCS: 36415; 85025

== ENCOUNTER → 2021-05-06 14:18 | Outpatient (CLI) | payer MEDICARE, SELFPAY ==
[2021-05-06 15:10] LABS: PSA,Total- Diagnostic 0.18 ng/mL (0.0-4.0)
== END ==
PROVIDERS: PCP Family Medicine; Referring Provider Urology; Visit Provider Urology
DX: C61 Malignant neoplasm of prostate (principal)
CPT/HCPCS: 36415; 84153

== ENCOUNTER → 2021-06-24 10:45 | Outpatient (CLI) | payer MEDICARE, SELFPAY ==
[2021-06-24 12:42] LABS: Anion Gap 4 (5-15); BUN 13 mg/dL (7-18); BUN/Creat Ratio 20.5 RATIO (10-20); Calcium,Total 10.1 mg/dL (8.5-10.1); Chloride 107 mmol/L (98-107); Cholesterol 135 mg/dL (200); Creatinine, Serum 0.64 mg/dL (0.70-1.30); EST Glomerular Filtration Rate 131 mL/min (>60); Est Glom Filt Rate - Afr Amer 159 mL/min (>60); Glucose 100 mg/dL (74-106); High Density Lipoprotein 39 mg/dL; Potassium 3.7 mmol/L (3.5-5.1); Sodium Level 140 mmol/L (136-145); Triglycerides 178 mg/dL; Very Low Density Lipoprotein 36 mg/dL (5-40)
[2021-06-24 13:04] LABS: Vitamin D,25 Hydroxy 32.2 ng/mL
== END ==
PROVIDERS: PCP Family Medicine; Referring Provider Family Medicine; Visit Provider Family Medicine
DX: Z00.00 Encounter for general adult medical examination without abnormal findings (principal); E78.5 Hyperlipidemia, unspecified; N40.0 Benign prostatic hyperplasia without lower urinary tract symptoms
CPT/HCPCS: 36415; 80048; 80061; 82306; 84403

== ENCOUNTER 2021-10-13 10:32 | Outpatient (CLI) | payer MEDICARE, SELFPAY ==
[2021-10-13 11:38] LABS: PSA,Total- Diagnostic 0.05 ng/mL (0.0-4.0)
== END 2021-10-13 23:59 | disposition home or self-care (01) ==
PROVIDERS: PCP Family Medicine; Referring Provider Urology; Visit Provider Urology
DX: C61 Malignant neoplasm of prostate (principal)
CPT/HCPCS: 36415; 84153

== ENCOUNTER → 2022-04-20 | Outpatient (CLI) | payer MEDICARE, SELFPAY ==
[2022-04-20 11:19] LABS: PSA,Total- Diagnostic 0.13 ng/mL (0.0-4.0)
== END | disposition home or self-care (01) ==
PROVIDERS: PCP Family Medicine; Referring Provider Urology; Visit Provider Urology
DX: C61 Malignant neoplasm of prostate (principal)
CPT/HCPCS: 36415; 84153

== ENCOUNTER → 2022-06-22 | Outpatient (CLI) | payer MEDICARE, SELFPAY ==
[2022-06-22 13:13] LABS: ALB/GLOB Ratio 1.2 RATIO (0.9-2.4); AST(SGOT) 20 U/L (15-37); Alanine Aminotransfer ALT/SGPT 30 U/L (16-61); Albumin, Serum 3.8 g/dL (3.2-5.0); Alkaline Phosphatase 87 U/L (45-117); Anion Gap 3 (5-15); BUN 16 mg/dL (7-18); BUN/Creat Ratio 25.6 RATIO (10-20); Calcium,Total 9.5 mg/dL (8.5-10.1); Chloride 106 mmol/L (98-107); Cholesterol 138 mg/dL (200); Creatinine, Serum 0.62 mg/dL (0.70-1.30); EST Glomerular Filtration Rate 133 mL/min (>60); Est Glom Filt Rate - Afr Amer 161 mL/min (>60); Globulin 3.1 g/dL (2.2-4.2); Glucose 100 mg/dL (74-106); High Density Lipoprotein 38 mg/dL; PSA,Total- Diagnostic 0.19 ng/mL (0.0-4.0); Potassium 3.8 mmol/L (3.5-5.1); Protein, Total 6.9 g/dL (6.4-8.2); Sodium Level 138 mmol/L (136-145); Triglycerides 113 mg/dL; Very Low Density Lipoprotein 23 mg/dL (5-40)
== END | disposition home or self-care (01) ==
LOC: MFPLAB 10:50
PROVIDERS: PCP Family Medicine; Referring Provider Family Medicine; Visit Provider Family Medicine
DX: E78.5 Hyperlipidemia, unspecified (principal); N40.0 Benign prostatic hyperplasia without lower urinary tract symptoms; N52.9 Male erectile dysfunction, unspecified
CPT/HCPCS: 36415; 80053; 80061; 84153; 84403

== ENCOUNTER → 2022-07-07 | Outpatient (CLI) | payer MEDICARE, SELFPAY ==
--- NOTE | 2022-07-07 08:44 | ECHOD_ITS ---
Reason For Study: Murmur Procedure This was a 2D Doppler, Color Flow transthoracic echocardiogram. The exam was of adequate technical quality. Exam performed in department. Left Ventricle Normal LV size. Mid cavitary false tendon noted. Left ventricular systolic function is normal. The estimated ejection fraction is 65 %. Diastolic function is indeterminate. No regional wall motion abnormalities noted. Right Ventricle Normal RV size. Normal systolic function. Atria Normal left atrium. Normal right atrium. No doppler evidence for ASD. Mitral Valve There is mild to moderate mitral annular calcification. Extension of the mitral annular calcification onto the base of the posterior mitral valve leaflet. Mild (1+) mitral valve insufficiency. Tricuspid Valve Normal tricuspid valve. Trivial tricuspid valve insufficiency. Unable to estimate RV systolic pressure due to insufficient tricuspid regurgitant envelope. Aortic Valve Trisinus/trileaflet aortic valve. Mild diffuse aortic valve thickening. Moderate focal aortic valve calcification. Arctic valve sclerosis/mild aortic valve stenosis. Pulmonic Valve Normal pulmonic valve. Trivial pulmonic valve insufficiency. Great Vessels Normal sized aortic root. Pericardium/Pleural Trivial pericardial effusion. There are no echocardiographic indications of cardiac tamponade. MMode/2D Measurements & Calculations LVIDd: 4.2 cm IVSd: 1.1 cm LVOT diam: 2.1 cm LVIDs: 2.7 cm LVPWd: 1.1 cm LVOT area: 3.6 cm2 RVDd: 3.9 cm FS: 35.5 % Ao root diam: 3.3 cm LAV(MOD-bp): 46.9 ml LVAd ap4: 33.3 cm2 LAV(MOD-bp) Indexed: 22.4 ml/m2 LVLd ap4: 8.9 cm LAV(MOD-sp2): 41.8 ml EDV(MOD-sp4): 102.1 ml LAV(MOD-sp4): 50.3 ml EDV(sp4-el): 105.0 ml LVAs ap4: 17.7 cm2 LVLs ap4: 7.6 cm ESV(MOD-sp4): 34.7 ml ESV(sp4-el): 35.0 ml EF(MOD-sp4): 66.0 % EF(sp4-el): 66.7 % LVAd ap2: 29.4 cm2 SV(MOD-sp4): 67.4 ml SV(MOD-sp2): 50.1 ml LVLd ap2: 8.7 cm EDV(MOD-sp2): 86.3 ml EDV(sp2-el): 84.2 ml LVAs ap2: 17.9 cm2 LVLs ap2: 7.9 cm ESV(MOD-sp2): 36.2 ml ESV(sp2-el): 34.4 ml EF(MOD-sp2): 58.1 % SV(sp4-el): 70.1 ml LA dimension(2D): 3.6 cm LA A4 area: 17.4 cm2 RA A4 area: 14.4 cm2 Doppler Measurements & Calculations MV E max leodan: 86.6 cm/sec Lat Peak E' Leodan: 5.9 cm/sec Med Peak E' Leodan: 6.9 cm/sec MV A max leodan: 99.8 cm/sec E/E' lat: 14.8 E/E' med: 12.6 MV E/A: 0.87 Ao V2 max: 209.4 cm/sec LV V1 max: 127.4 cm/sec SV(LVOT): 107.7 ml Ao max P.5 mmHg LV V1 max P.5 mmHg Ao V2 mean: 151.2 cm/sec LV V1 mean P.8 mmHg Ao mean P.0 mmHg LV V1 mean: 93.1 cm/sec Ao V2 VTI: 45.2 cm LV V1 VTI: 30.3 cm AV (velocity ratio): 0.67 KIEL(I,D): 2.4 cm2 KIEL(V,D): 2.2 cm2 PA V2 max: 140.1 cm/sec ECHO/Echo Complete Interpretation Summary Left ventricular systolic function is normal. The estimated ejection fraction is 65 %. Mid cavitary false tendon noted. There is mild to moderate mitral annular calcification. Extension of the mitral annular calcification onto the base of the posterior mi tral valve leaflet. Mild (1+) mitral valve insufficiency. Trivial tricuspid valve insufficiency. Arctic valve sclerosis/mild aortic valve stenosis. Trivial pulmonic valve insufficiency. Trivial pericardial effusion. There are no echocardiographic indications of cardiac tamponade. Unable to estimate RV systolic pressure due to insufficient tricuspid regurgita nt envelope. Diastolic function is indeterminate. Ordering Physician: Jus Rutledge Referring Physician: Jus Rutledge Performed By: Shaye Moore TIP
== END | disposition home or self-care (01) ==
LOC: CVS 08:40
PROVIDERS: PCP Family Medicine; Referring Provider Family Medicine; Visit Provider Family Medicine
DX: R01.1 Cardiac murmur, unspecified (principal); I34.81 Nonrheumatic mitral (valve) annulus calcification; I34.0 Nonrheumatic mitral (valve) insufficiency; I07.1 Rheumatic tricuspid insufficiency; I35.0 Nonrheumatic aortic (valve) stenosis; I37.1 Nonrheumatic pulmonary valve insufficiency
CPT/HCPCS: 93306

== ENCOUNTER → 2022-10-19 | Outpatient (CLI) | payer MEDICARE, SELFPAY ==
[2022-10-19 15:55] LABS: PSA,Total- Diagnostic 0.84 ng/mL (0.0-4.0)
== END | disposition home or self-care (01) ==
LOC: LAB 14:52
PROVIDERS: PCP Family Medicine; Referring Provider Urology; Visit Provider Urology
DX: C61 Malignant neoplasm of prostate (principal)
CPT/HCPCS: 36415; 84153

== ENCOUNTER → 2023-03-01 | Outpatient (CLI) | payer MEDICARE, SELFPAY | END | disposition home or self-care (01) | LOC: LAB 14:44 | PROVIDERS: PCP Family Medicine; Referring Provider Registered Nurse; Visit Provider Registered Nurse | DX: C61 Malignant neoplasm of prostate (principal) | CPT/HCPCS: 36415; 84153 ==

== ENCOUNTER → 2023-03-16 | Outpatient (CLI) | payer MEDICARE, SELFPAY ==
--- NOTE | 2023-03-16 15:45 | CT_ITS ---
EXAM: CT ABDOMEN AND PELVIS WITHOUT AND WITH INTRAVENOUS CONTRAST CLINICAL INDICATION: PROSTATE CA TECHNIQUE: Helically acquired images were obtained of the abdomen and pelvis without and with intravenous contrast. This CT exam was performed using one or more of the following dose reduction techniques: automated exposure control, adjustment of the mA and/or kV according to patient size, and/or use of iterative reconstruction technique. CONTRAST: IV 100mL Isovue-300 RADIATION DOSE: CTDIvol = 18.28 mGy, DLP = 2426.41 mGy-cm COMPARISON: No relevant prior studies available. FINDINGS: LOWER THORAX: Unremarkable. Lung bases are clear. No cardiomegaly. No significant pericardial effusion. ABDOMEN: LIVER: Numerous liver cysts are seen measuring as much as 2.7 cm. GALLBLADDER AND BILE DUCTS: Cholelithiasis. No gallbladder distention or wall edema. No intra- or extrahepatic biliary ductal dilation. PANCREAS: Unremarkable. No focal cystic or solid mass. SPLEEN: Unremarkable. Normal size without focal cystic or solid mass. ADRENALS: Unremarkable. No nodules. KIDNEYS AND URETERS: Unremarkable. Normal renal size and position. No hydronephrosis. STOMACH AND BOWEL: Evaluation of the GI tract is limited by absence of oral contrast. Small hiatal hernia. Cannot exclude stomach wall thickening. No dilated loops of bowel or evidence for obstruction. Cannot exclude segmental thickening of the dixon of the small or large bowel. Cannot exclude enteritis or colitis. Moderate diffuse fecal retention. Diverticulosis without definite diverticulitis. Appendix within normal limits. PELVIS: APPENDIX: No evidence of acute appendicitis. BLADDER: Unremarkable. REPRODUCTIVE: Radiotherapy seeds in the prostate consistent with history of prostate cancer. ABDOMEN and PELVIS: INTRAPERITONEAL SPACE: Unremarkable. No ascites or other fluid collection. No free air. BONES/JOINTS: Degenerative changes throughout the bones. Grossly satisfactory appearance of left hip arthroplasty. No suspicious lytic or blastic abnormality. SOFT TISSUES: Bilateral moderate inguinal hernias, each containing short segments of bowel but with no evidence for obstruction. VASCULATURE: Unremarkable. Abdominal aorta is non-dilated. LYMPH NODES: Unremarkable. No enlarged lymph nodes. CT/CT Abd/Pelvis W/WO Contrast IMPRESSION: 1. No acute abnormality. 2. Cholelithiasis. 3. Bilateral inguinal hernias containing bowel loops. No evidence for obstruction. Electronically Signed: Willy Stevens MD at 18:20 EDT ,
[2023-03-16 16:09] LABS: CREATININE FINGERSTICK 1.1 mg/dL (0.70-1.30); EGFR FINGERSTICK > 60.0000 mL/min (>60)
== END | disposition home or self-care (01) ==
LOC: CT 15:43
PROVIDERS: PCP Family Medicine; Referring Provider Urology; Visit Provider Urology
DX: C61 Malignant neoplasm of prostate (principal)
CPT/HCPCS: 74178; Q9967

== ENCOUNTER → 2023-03-23 | Outpatient (CLI) | payer MEDICARE, SELFPAY ==
--- NOTE | 2023-03-23 08:10 | NM_ITS ---
CLINICAL: 75-year-old male with history of primary prostate carcinoma. WHOLE BODY 99m Tc MDP RADIONUCLIDE BONE SCINTIGRAPHY COMPARISON: Previous whole body bone scintigraphy study dated 12/22/2020 FINDINGS: Following the intravenous administration of 27.6 mCi of 99m Tc MDP, whole body bone images reveal: 1. Increased radiopharmaceutical concentration is demonstrated in the acromioclavicular, sternoclavicular and glenohumeral compartments of both shoulders, the wrist articulations bilaterally, the upper cervical spine posteriorly on the left, lower cervical spine posteriorly on the right, the bilateral elbows, the knees bilaterally. 2. The remaining skeletal structures are scintigraphically unremarkable with normal-appearing renal images and urinary bladder activity identified. Facilitated uptake is redefined in the region of the right frontozygomatic suture most consistent with a normal variant. The presumed asymptomatic right hip arthroplasty appears scintigraphically unremarkable. NM/Bone Scan Whole Body IMPRESSION: 1. Degenerative arthrosis is defined in the bilateral shoulder and wrist articulations, the right-left ankles, the cervical spine, both knee articulations. 2. Overall compared to the previous study dated 12/22/2020, there is continued absence of defined viable neoplastic disease with minimal interval change. Electronically Signed: Jaren Barragan DO at 20:53 EDT ,
== END | disposition home or self-care (01) ==
LOC: NM 08:10
PROVIDERS: PCP Family Medicine; Referring Provider Urology; Visit Provider Urology
DX: C61 Malignant neoplasm of prostate (principal)
CPT/HCPCS: 78306; A9503

== ENCOUNTER → 2023-04-03 | Outpatient (CLI) | payer MEDICARE, SELFPAY ==
[2023-04-03 13:08] LABS: PSA,Total- Diagnostic 8.52 ng/mL (0.0-4.0)
== END | disposition home or self-care (01) ==
LOC: LAB 10:53
PROVIDERS: PCP Family Medicine; Referring Provider Nurse Practitioner; Visit Provider Nurse Practitioner
DX: C61 Malignant neoplasm of prostate (principal)
CPT/HCPCS: 36415; 84153

== ENCOUNTER 2023-04-18 11:03 | Outpatient (CLI) | payer MEDICARE, SELFPAY ==
--- NOTE | 2023-04-18 11:30 | PET_ITS ---
EXAMINATION: Ga 68 PSMA PET/CT INDICATIONS: A 77-year-old male with a history of primary prostate carcinoma presenting for restaging examination. COMPARISON: None available INDEX LESION SIZE SUV PROMISE SCORE INTERPRETATION Left anterior neck level 9.8 mm 28.62 3 Fulfills quantitative criteria for viable neoplasm. Bilateral hemipelvis 19.2 mm largest 47.78 3 Fulfills quantitative criteria for viable neoplasm. Skeletal 41.93 3 Fulfills quantitative criteria for viable neoplasm. TECHNIQUE: A volumetric CT was acquired from the vertex skull to the mid thigh after a standard uptake. Following the injection of 9.94 mCi of [id number] via left hand, PET images were acquired using multiple positions along the same length of the patient?s body as the computed tomography examination. Iterative methods were used to reconstruct PET acquisitions with a slice thickness of [address] images were accordingly used for attenuation correction. The examination was interpreted utilizing the EANM (Erica et al, Journal of Nuclear Medicine Molecular Imaging 44:1622, 2017) and PROMISE (Glenys et al, Journal of Nuclear Medicine 59:469, 2018) interpretive criteria. PSMA expression score-PROMISE criteria High (3): SUV equal to and/or greater than parotid-salivary glands, Intermediate (2): SUV equal to or greater than liver, Low (1): SUV equal and/or less than blood pool. PAROTID GLANDS SUV: 28.91 NORMAL LIVER PARENCHYMA: 7.6 BLOOD POOL: 2.2 FINDINGS: Head/Neck: Facilitated tracer concentration is manifest in the left anterior neck involving level . Uptake corresponds to soft tissue. The calculated maximum standard uptake value is 28.62. The maximum axial diameter of the metabolic, morphologic abnormality is 9.8 mm. The PROMISE score is 3. Physiologic symmetric radiopharmaceutical concentration is defined in the bilateral parotid and submandibular glands. Physiologic tracer uptake is noted within the nasal cavity. There is no evidence of abnormal increased radiopharmaceutical concentration within the context of the cranial vault. CHEST: There is no evidence of abnormal increased radiopharmaceutical concentration defined in the bilateral hemithorax pulmonary parenchyma, mediastinal structures and right-left thoracic perihilum. Segmental distribution of the radiotracer extends from the proximal to distal esophagus. Pertinent chest CT findings are as follows. Pericardial thickening and effusion is non tracer avid. Left and right axillary soft tissue densities demonstrate no evidence of increased radiopharmaceutical concentration. Atherosclerotic calcification is defined in the thoracic aorta without evidence of dilatation, aneurysm formation. Coronary arterial calcification is observed. There are no parenchymal densities-nodules demonstrated in the bilateral hemithorax with quantitatively significant increased tracer uptake. Abdomen/Pelvis: Facilitated radiopharmaceutical concentration is noted in the bilateral hemipelvis. The maximum standard calculated uptake value is 47.78. The PROMISE score is 3. The largest corresponding soft tissue density is 19.2 mm. Physiologic tracer uptake is noted in the hepatic and splenic parenchyma, both renal units, urinary bladder, and visualized gastrointestinal tract. Abdomen and pelvis CT findings are as follows. Colonic diverticula are defined without evidence of diverticulitis. Abdominal aortic calcification is demonstrated without visualized aneurysm formation-dilatation. Pelvic arterial calcification is observed. Cholelithiasis is demonstrated. Right and left inguinal soft tissue densities are ametabolic. Skeletal: Facilitated radiotracer concentration is defined in several thoracic vertebra and the bilateral posterior ilium generating calculated maximum standard uptake value of 41.93. The PROMISE score is 3. PET/PET/CT Tumor Base -Thigh Subs IMPRESSION: 1. ABNORMAL EXAMINATION INDICATIVE OF MALIGNANT-VIABLE NEOPLASM. 2. Increased radiopharmaceutical concentration defined in the left anterior neck fulfills quantitative criteria for viable neoplasm. 3. Enhanced tracer uptake noted in the bilateral hemipelvis fulfills quantitative criteria for malignant transformation. 4. Skeletal hypermetabolic foci fulfill quantitative criteria for viable osseous neoplastic involvement. Electronic Signature Jaren Barragan D.O. Accurate Quantification of SUVs and standardized PROMISE scores for this report are calculated using the exclusive [employer], ([place]. Patent No. [phone] [phone] [place] patent [phone] ). Standardization and correction of the FDG SUV metric exclusively available with [employer] intellectual property, allow for vendor non-specific objective quantitative sequential FDG PET-CT comparison and otherwise unobtainable optimization of the sensitivity and specificity of the examination. [email or web address] Electronically Signed: Jaren Barragan DO at 8:45 EDT ,
== END 2023-04-18 23:59 | disposition home or self-care (01) ==
PROVIDERS: PCP Family Medicine; Referring Provider Urology; Visit Provider Urology
DX: C61 Malignant neoplasm of prostate (principal); R97.21 Rising PSA following treatment for malignant neoplasm of prostate
CPT/HCPCS: 78815; A9595

== ENCOUNTER 2023-06-26 09:48 | Outpatient (CLI) | payer MEDICARE, SELFPAY ==
[2023-06-26 12:39] LABS: PSA,Total- Diagnostic < 0.01 ng/mL (0.0-4.0)
[2023-06-30 12:35] LABS: Anion Gap 6 (5-15); BUN 16 mg/dL (7-18); BUN/Creat Ratio 22.2 RATIO (10-20); Calcium,Total 9.7 mg/dL (8.5-10.1); Chloride 107 mmol/L (98-107); Cholesterol 148 mg/dL (200); Creatinine, Serum 0.72 mg/dL (0.70-1.30); EST Glomerular Filtration Rate 113 mL/min (>60); Est Glom Filt Rate - Afr Amer 136 mL/min (>60); Glucose 129 mg/dL (74-106); High Density Lipoprotein 44 mg/dL; Potassium 3.7 mmol/L (3.5-5.1); Sodium Level 140 mmol/L (136-145); Triglycerides 107 mg/dL; Very Low Density Lipoprotein 21 mg/dL (5-40)
== END 2023-06-26 23:59 | disposition home or self-care (01) ==
LOC: MFPLAB 09:48
PROVIDERS: PCP Family Medicine; Visit Provider Family Medicine
DX: Z00.00 Encounter for general adult medical examination without abnormal findings (principal); C61 Malignant neoplasm of prostate; I10 Essential (primary) hypertension
CPT/HCPCS: 36415; 80048; 80061; 84153

== ENCOUNTER → 2023-08-03 | Outpatient (CLI) | payer MEDICARE, SELFPAY ==
--- OUTSIDE RECORDS SUMMARY | 2023-08-03 13:41 | XMS RPT_ITS | CCD ---
Author Name Unknown Address [address] [place] [id number] Organization [facility] Care Team Providers Care Employee Communications Intern Name Role Phone ANGLE MA Attending Unavailable Problems Problem Classification Problem Date Documented Da te Episodic/Chronic Other and unspecified benign neoplasm (2 sources) Personal history of colonic polyps; Translations: [Personal history of colonic polyps] Onset: 07-27-2018 Episodic Results Test Name Value Interpretation Reference Range Facil ity Encounters Encounter Date Encounter Type Care Provider Facility Start: 07-27-2018 End: 07-27-2018 Patient encounter procedure ANGLE MA Facility:B Payers Date Payer Category Payer Unknown [id number] 1945 Unknown [id number] Progress note 10-30-2020 Note Date & Type Note Facility 10-30-2020 Note HNO ID: [id number] Author: Wale Livingston III Service: ? Author Type: Physician Type: Progress Notes Filed: 10/30/2020 12:05 PM Note Text: SUBJECTIVE: This is a 74 year old male that is here today for Chronic Medical Conditions. 1. hypertension-tolerates medication well 2. hyperlipidemia-tolerates medication well 3. some recent wt loss--walking a lot 4. BPH- 5. s/p R hip replacement-doing very well no chest pain, angina, BUCK, cough, abd pain, change in BM, rectal bleeding, change in urination PAST MEDICAL HISTORY Diagnosis Date - Adenomatous polyp of colon 08/01/2018 - BENIGN HYPERTENSION 12/11/2008 - Erectile dysfunction 03/07/2012 - HYPERLIPIDEMIA NEC/NOS 10/30/2008 - Hypertrophy of prostate without urinary obstruction and other lower urinary tract symptoms (LUTS) 10/30/2008 Current Outpatient Medications on File Prior to Visit Medication Sig - amLODIPine (NORVASC) 5 mg tablet Take 1 tablet by mouth once daily. - lisinopril-hydroCHLOROthiazide (PRINZIDE, ZESTORETIC) 20-25 mg per tablet Take 1 tablet by mouth once daily. - simvastatin (ZOCOR) 20 mg tablet Take 1 tablet by mouth daily at bedtime. No current facility-administered medications on file prior to visit. FAMILY HISTORY Problem Relation Age of Onset - Coronary Artery Disease Father of [place] at 43 - Breast Cancer Mother pacemaker - Hypertension Brother - Hypertension Brother - Hypertension Brother - Hypertension Brother - Hypertension Sister Social History Tobacco Use - Smoking status: Former Smoker Types: Cigarettes, Pipe Quit date: 01/27/1977 Years since quittin.7 - Smokeless tobacco: Never Used Substance Use Topics - Alcohol use: Yes Comment: rare - Drug use: No BP 150/88 Pulse 68 Resp 16 Ht 172.7 cm (5' 8 ) Wt 96.2 kg (212 lb) BMI 32.23 kg/m? . OBJECTIVE: APPEARANCE Well appearing, alert, in no acute distress, well-hydrated, well nourished. NECK Supple, no adenopathy; thyroid symmetric, normal size, no bruits HEART RRR with normal S1 and S2, no murmurs, no gallops, no JVD appreciated LUNG clear to auscultation ABDOMEN soft, non-tender, non-distended, without organomegaly or palpable masses, no tenderness to palpation RECTAL Anus normal, no anorectal masses, Prostate normal size, consistency, no nodules, and no tenderness, prostate 2/4 rubbery BACK: no pain to palpation EXTREMITIES Extremities normal, No deformities, No skin discoloration, No edema and Normal pulses bilaterally. NEURO Awake, alert and oriented x 3, Normal gait and No involuntary motions. Lab Results for NOLAN BURR ( ) as of 10/30/2020 10:07 Ref. Range 10/22/2020 00:00 NA Latest Ref Range: 136 - 145 mmol/L 137 K Latest Ref Range: 3.5 - 5.1 mmol/L 3.6 Chloride Latest Ref Range: 98 - 107 MEQ/L 104 CO2 Latest Ref Range: 21 - 32 MEQ/L 29.0 BUN Latest Ref Range: 7 - 18 MG/DL 14 Creatinine Latest Ref Range: 0.6 - 1.3 MG/DL 0.7 Glucose Latest Ref Range: 74 - 106 MG/DL 100 Albumin Latest Ref Range: 3.2 - 4.6 gm/dL 3.5 AST Latest Ref Range: 8 - 37 U/L 12 Triglyceride Latest Ref Range: 149 mg/dL 74 PSA Latest Ref Range: 0 - 4 ng/mL 6.11 (A) WBC Latest Ref Range: 3.9 - 11 K/uL 12.6 (A) RBC Latest Ref Range: 4 - 6 M/uL 5.41 HGB Latest Ref Range: 14 - 16.5 g/dL 15.6 MCV Latest Ref Range: 79 - 98 fL 88.2 MCH Latest Ref Range: 25.4 - 34.6 pg 28.8 MCHC Latest Ref Range: 30 - 36 g/dL 32.7 MPV Latest Ref Range: 7.4 - 10.4 fL 10.0 HCT Latest Ref Range: 39 - 55 % 47.7 Platelet Latest Ref Range: 140 - 440 K/uL 349 Alk Phos Total Latest Ref Range: 45 - 117 U/L 98 ALT (SGPT) Latest Ref Range: 12 - 78 U/L 27 Bili Total Latest Ref Range: 0.2 - 1 mg/dL 0.60 Calcium Latest Ref Range: 8.5 - 10.1 mg/dL 9.8 Cholesterol, Total Latest Ref Range: 0 - 200 MG/DL 117 GFR Latest Units: mL/MIN 118 GFR AFR AMER Latest Units: mL/MIN 142 HDC-L Latest Ref Range: 41 mg/dL 36 LDL Chol, calculated Latest Ref Range: 130 MG/DL 66 Total Protein Latest Ref Range: 6.4 - 8.2 gm/dL 7.4 ASSESSMENT: elevated PSA hypertension-near goal hyperlipidemia-at goal PLAN: healthy diet and regular exercise same medications free PSA discussion re: prostate cancer screening follow BP Wale Livingston III Medical Decision Making: Problems: Moderate: New problem with uncertain prognosis and 2+ stable chronic illnesses Data: Unique test result(s) reviewed: 3+ Risk: Moderate: Drug management Medical Decision Making Level: 4 - Moderate [facility] Summary Purpose Family History No Family History Records FoundNo Family History Records Found Advance Directives No Advanced Directives Records FoundNo Advanced Directives Records Found Additional Source Comments (unrecognized sect ion and content) No Status Records FoundNo Status Records Found INFORMATION SOURCE (unrecogn ized section and content) DATE CREATED AUTHOR AUTHOR'S KAYODE CAMARGO 09/08/2021 [facility] FOR RECORDS PERTAINING TO PATIENTS WHO ARE OR HAVE BEEN ENROLLED IN A CHEMICAL DEPENDENCY/SUBSTANCEABUSE PROGRAM, SOME INFORMATION MAY BE OMITTED. This clinical summary was aggregated from multiple sources. Caution should be exercised in using it in the provision of clinical care. This summary normalizes information from multiple sources, and as a consequence, information in this document may materially change the coding, format and clinical context of patient data. In addition, data may be omitted in some cases. CLINICAL DECISIONS SHOULD BE BASED ON THE PRIMARY CLINICAL RECORDS. [employer] [facility]. provides no warranty or guarantee of the accuracy or completeness of information in this document.
[2023-08-03 14:01] LABS: PSA,Total- Diagnostic < 0.01 ng/mL (0.0-4.0)
== END | disposition home or self-care (01) ==
LOC: LAB 13:22
PROVIDERS: PCP Family Medicine; Referring Provider Urology; Visit Provider Urology
DX: C61 Malignant neoplasm of prostate (principal)
CPT/HCPCS: 36415; 84153

== ENCOUNTER → 2023-11-06 | Outpatient (CLI) | payer MEDICARE, SELFPAY ==
[2023-11-06 15:16] LABS: PSA,Total- Diagnostic < 0.01 ng/mL (0.0-4.0)
== END | disposition home or self-care (01) ==
LOC: LAB 14:33
PROVIDERS: PCP Family Medicine; Visit Provider Nurse Practitioner
DX: C61 Malignant neoplasm of prostate (principal)
CPT/HCPCS: 36415; 84153

== ENCOUNTER → 2023-11-23 | Outpatient (CLI) | payer MEDICARE, SELFPAY ==
--- NOTE | 2023-11-23 16:11 | BD_ITS ---
STUDY: DUAL ENERGY X-RAY ABSORPTIOMETRY / DXA REASON FOR EXAM: Male, 77 years old. 733.00OsteoporosisBONE DENSITY REASON FOR EXAM TECHNIQUE: Bone Mineral Density (BMD) measurements of lumbar spine and left hip were obtained. COMPARISON: None. FINDINGS: Lumbar Spine (L1-L4): g/cm2 (1.169) / T-score (0.7) / Z-score (1.8) Findings are suggestive of normal bone density with a low fracture risk. Left Femur Total: g/cm2 (0.947) / T-score (-0.6) / Z-score (0.3) Left Femoral Neck: g/cm2 (0.800) / T-score (-1.0) / Z-score (0.4) BD/Dexa Bone Density Study IMPRESSION: The patient is considered normal as outlined below according to World Grant Organization (WHO) criteria with a low fracture risk. Reference Information: The T-score is the number of standard deviations above or below the standard which is normal for young adults at their peak bone mineral density. The World Health Organization (WHO) interprets the T-scores as follows: Above -1 Normal bone density Between -1 and -2.5 Osteopenia Equal to / or below -2.5 Osteoporosis As a practical clinical guideline, osteopenia may be graded as follows: Mild -1 through -1.5 Moderate -1.6 through -2.0 Severe -2.1 through -2.4 The Z-score is the number of standard deviations above or below age-matched controls. A Z-score of less than -1.5 would be considered abnormal. References: 1. NIH Osteoporosis and Related Bone Diseases www osteo.org 2. International Society for Clinical Densitometry www iscd.org 3. National Osteoporosis Foundation www nof.org Electronically Signed: Tyrel Porter MD at 12:57 EDT ,
== END | disposition home or self-care (01) ==
LOC: OPBD 16:03
PROVIDERS: PCP Family Medicine; Referring Provider Urology; Visit Provider Urology
DX: M81.8 Other osteoporosis without current pathological fracture (principal)
CPT/HCPCS: 77080

== ENCOUNTER → 2023-12-12 | Outpatient (CLI) | payer MEDICARE, SELFPAY ==
--- NOTE | 2023-12-12 10:55 | ECHOD_ITS ---
Reason For Study: Endocarditis Procedure This was a 2D Doppler, Color Flow transthoracic echocardiogram. Myocardial strain analysis was performed in this exam to aid in the assessment of cardiac function. Exam performed in department. Left Ventricle Normal LV size. Mid cavitary false tendon noted. Left ventricular systolic function is normal. The left ventricular ejection fraction is 60 %. Stage 1 diastolic dysfunction. No regional wall motion abnormalities noted. Right Ventricle Normal RV size. Normal systolic function. Atria Normal left atrium. Normal right atrium. Mitral Valve There is mild mitral annular calcification. Tricuspid Valve Normal tricuspid valve. Aortic Valve Trisinus/trileaflet aortic valve. Moderate focal aortic valve thickening. Peak aortic valve gradient 20 mmHg. Mean aortic valve gradient 12 mmHg. Pulmonic Valve Normal pulmonic valve. Great Vessels Normal aortic root. The pulmonary artery is normal size. Inferior vena cava collapse with respiration. Pericardium/Pleural No pericardial effusion. MMode/2D Measurements & Calculations LVIDd: 4.1 cm IVSd: 1.1 cm LVOT diam: 2.1 cm LVIDs: 2.4 cm LVPWd: 0.99 cm LVOT area: 3.5 cm2 RVDd: 4.0 cm FS: 41.7 % Ao root diam: 3.7 cm LAV(MOD-bp): 45.7 ml LA A4 area: 16.6 cm2 LA dimension: 3.2 cm LAV(MOD-bp) Indexed: 22.4 ml/m2 LAV(MOD-sp2): 46.5 ml LAV(MOD-sp4): 44.2 ml TAPSE: 2.3 cm RA A4 area: 16.1 cm2 Time Measurements MV dec time: 0.24 sec Doppler Measurements & Calculations MV E max leodan: 77.6 cm/sec Lat Peak E' Leodan: 6.0 cm/sec Med Peak E' Leodan: 6.1 cm/sec MV A max leodan: 104.5 cm/sec E/E' lat: 13.0 E/E' med: 12.7 MV E/A: 0.74 MV V2 max: 121.4 cm/sec MV P1/2t max leodan: 95.9 cm/sec Ao V2 max: 225.6 cm/sec MV max P.9 mmHg MV P1/2t: 89.7 msec Ao max P.4 mmHg MV V2 mean: 63.6 cm/sec MV dec slope: 313.0 cm/sec2 Ao V2 mean: 160.5 cm/sec MV mean P.9 mmHg Ao mean P.6 mmHg MV V2 VTI: 33.0 cm MVA(P1/2t): 2.5 cm2 Ao V2 VTI: 51.4 cm MVA(VTI): 2.9 cm2 AV (velocity ratio): 0.54 KIEL(I,D): 1.9 cm2 KIEL(V,D): 1.8 cm2 LV V1 max: 114.7 cm/sec SV(LVOT): 95.6 ml PA V2 max: 107.9 cm/sec LV V1 max P.3 mmHg LV V1 mean P.7 mmHg LV V1 mean: 75.2 cm/sec LV V1 VTI: 27.6 cm ECHO/Echo Complete Interpretation Summary Normal LV size. Left ventricular systolic function is normal. The left ventricular ejection fraction is 60 %. No regional wall motion abnormalities noted. Stage 1 diastolic dysfunction. Moderate focal aortic valve thickening. Mean aortic valve gradient 12 mmHg. The global longitudinal strain is normal. The global longitudinal strain = -17. 2 % (normal). Ordering Physician: Shauna Holland Referring Physician: Jus Rutledge Performed By: Patrick Martinez RCS
== END | disposition home or self-care (01) ==
PROVIDERS: PCP Family Medicine; Referring Provider Physician Assistant Medical; Visit Provider Physician Assistant Medical
DX: I38 Endocarditis, valve unspecified (principal)
CPT/HCPCS: 93306

== ENCOUNTER → 2023-12-27 | Outpatient (CLI) | payer MEDICARE, SELFPAY ==
[2023-12-27 13:45] LABS: Anion Gap 5 (5-15); BUN 15 mg/dL (7-18); BUN/Creat Ratio 20.3 RATIO (10-20); Calcium,Total 10.6 mg/dL (8.5-10.1); Chloride 103 mmol/L (98-107); Creatinine, Serum 0.74 mg/dL (0.70-1.30); EST Glomerular Filtration Rate 109 mL/min (>60); Est Glom Filt Rate - Afr Amer 132 mL/min (>60); Glucose 116 mg/dL (74-106); Sodium Level 136 mmol/L (136-145)
== END | disposition home or self-care (01) ==
LOC: MFPLAB 10:33
PROVIDERS: PCP Family Medicine; Visit Provider Family Medicine
DX: I10 Essential (primary) hypertension (principal)
CPT/HCPCS: 36415; 80048

== ENCOUNTER → 2023-12-28 | Outpatient (CLI) | payer MEDICARE, SELFPAY ==
--- NOTE | 2023-12-28 07:49 | CT_ITS ---
STUDY: CT ABDOMEN AND PELVIS WITH CONTRAST REASON FOR EXAM: Male, 78 years old. GROSS HEMATURIA. History of hypertension and prostate cancer. RADIATION DOSAGE (If Supplied By Facility): CTDIvol = ( 17.35 ) mGy, DLP = ( 1134.64 ) mGycm TECHNIQUE: Transaxial images were obtained from the dome of the diaphragm to the symphysis pubis without oral contrast. IV 100mL Isovue-370 was administered. Sagittal and coronal images were reconstructed. Individualized dose optimization techniques were used for this CT. COMPARISON: Comparison is made with prior study March 16, 2023. FINDINGS: The visualized lung bases are unremarkable. Coronary artery calcification. Stable left appearance of the hepatic cysts. There are multiple gallstones. Normal spleen. Normal pancreas. Normal bilateral adrenal glands. Normal right kidney. Normal left kidney. Nonspecific bilateral perinephric stranding. Normal visualized stomach. There is evidence of a duodenal diverticulum in the second portion of the duodenum. Normal small intestine. There are multiple colonic diverticula consistent with diverticulosis. The appendix is visualized and appears normal. There is diffuse atherosclerotic calcification of the abdominal aorta and its major visceral branches, without a demonstrated aneurysm. Normal inferior vena cava. Normal retroperitoneum. Normal urinary bladder. Radiation seeds are seen in the prostate bed. Heterogeneous enlargement of the prostate with indentation of the bladder base. Small bilateral inguinal hernias containing fat. There are diffuse degenerative changes of the visualized lumbar spine. Degenerative changes of the sacroiliac joints bilaterally. Status post right total hip replacement. CT/Abdomen/Pelvis W IV Cont ONLY IMPRESSION: Stable hepatic cysts. Multiple gallstones. Stable nonspecific bilateral perinephric stranding. Sigmoid diverticulosis. Small bilateral inguinal nodes containing fat. Radiation seeds are seen within the prostate. Electronically Signed: Tyrel Porter MD at 14:48 EDT ,
[2023-12-28 08:17] LABS: CREATININE FINGERSTICK < 1.0 mg/dL (0.70-1.30); EGFR FINGERSTICK > 60.0000 mL/min (>60)
[2023-12-28 12:42] LABS: PTHIN 73.4 pg/mL (18.4-80.1)
== END | disposition home or self-care (01) ==
PROVIDERS: PCP Family Medicine; Referring Provider Urology; Visit Provider Urology
DX: R31.0 Gross hematuria (principal); E58 Dietary calcium deficiency
CPT/HCPCS: 36415; 74177; 83970; Q9967

== ENCOUNTER → 2024-02-09 | Outpatient (CLI) | payer MEDICARE, SELFPAY ==
[2024-02-09 11:02] LABS: PSA,Total- Diagnostic < 0.01 ng/mL (0.0-4.0)
== END | disposition home or self-care (01) ==
LOC: LAB 09:54
PROVIDERS: PCP Family Medicine; Visit Provider Urology
DX: C61 Malignant neoplasm of prostate (principal)
CPT/HCPCS: 36415; 84153

== ENCOUNTER → 2024-05-13 | Outpatient (CLI) | payer MEDICARE, SELFPAY ==
[2024-05-13 10:56] LABS: PSA,Total- Diagnostic < 0.01 ng/mL (0.0-4.0)
== END | disposition home or self-care (01) ==
LOC: LAB 09:40
PROVIDERS: PCP Family Medicine; Referring Provider Nurse Practitioner; Visit Provider Nurse Practitioner
DX: C61 Malignant neoplasm of prostate (principal)
CPT/HCPCS: 36415; 84153

== ENCOUNTER → 2024-07-04 | Outpatient (CLI) | payer MEDICARE, SELFPAY ==
[2024-07-04 12:45] LABS: Anion Gap 2 (5-15); BUN 12 mg/dL (7-18); BUN/Creat Ratio 19.4 RATIO (10-20); Calcium,Total 10.4 mg/dL (8.5-10.1); Chloride 106 mmol/L (98-107); Cholesterol 140 mg/dL (200); Creatinine, Serum 0.62 mg/dL (0.70-1.30); EST Glomerular Filtration Rate 135 mL/min (>60); Est Glom Filt Rate - Afr Amer 163 mL/min (>60); Glucose 111 mg/dL (74-106); High Density Lipoprotein 41 mg/dL; Potassium 3.8 mmol/L (3.5-5.1); Sodium Level 136 mmol/L (136-145); Triglycerides 128 mg/dL; Very Low Density Lipoprotein 26 mg/dL (5-40)
== END | disposition home or self-care (01) ==
LOC: MFPLAB 10:43
PROVIDERS: PCP Family Medicine; Referring Provider Family Medicine; Visit Provider Family Medicine
DX: E78.5 Hyperlipidemia, unspecified (principal)
CPT/HCPCS: 36415; 80048; 80061

== ENCOUNTER → 2024-08-13 | Outpatient (CLI) | payer MEDICARE, SELFPAY ==
[2024-08-13 11:43] LABS: PSA,Total- Diagnostic < 0.01 ng/mL (0.0-4.0)
== END | disposition home or self-care (01) ==
LOC: LAB 10:27
PROVIDERS: PCP Family Medicine; Referring Provider Nurse Practitioner; Visit Provider Nurse Practitioner
DX: C61 Malignant neoplasm of prostate (principal)
CPT/HCPCS: 36415; 84153

== ENCOUNTER → 2024-11-12 | Outpatient (CLI) | payer MEDICARE, SELFPAY ==
[2024-11-12 12:11] LABS: PSA,Total- Diagnostic < 0.02 ng/mL (0.00-4.00)
== END | disposition home or self-care (01) ==
LOC: LAB 10:37
PROVIDERS: PCP Family Medicine; Referring Provider Nurse Practitioner; Visit Provider Nurse Practitioner
DX: C61 Malignant neoplasm of prostate (principal)
CPT/HCPCS: 36415; 84153

== ENCOUNTER → 2024-12-26 | Outpatient (CLI) | payer MEDICARE, SELFPAY ==
[2024-12-26 16:13] LABS: ALB/GLOB Ratio 1.3 RATIO (0.9-2.4); AST(SGOT) 18 U/L (<=37); Alanine Aminotransfer ALT/SGPT 11 U/L (<=46); Alkaline Phosphatase 103 U/L (40-129); Anion Gap 9 (5-15); BUN 15 mg/dL (4-19); BUN/Creat Ratio 25.2 RATIO (10-20); Calcium,Total 10.4 mg/dL (7.6-11.0); Carbon Dioxide 24.8 mmol/L (21.0-32.0); Chloride 104 mmol/L (98-108); Cholesterol 147 mg/dL (<=200); EST Glomerular Filtration Rate 99 (>60); Glucose 109 mg/dL (70-99); High Density Lipoprotein 38 mg/dL; Low Density Lipoprotein Calc. 83 mg/dL; Potassium 3.9 mmol/L (3.3-5.1); Sodium Level 138 mmol/L (133-145); Total Bilirubin 0.59 mg/dL (0.00-1.30); Triglycerides 128 mg/dL; Very Low Density Lipoprotein 26 mg/dL (5-40); cholesterol:hdl ratio screen 3.84
[2024-12-26 17:58] LABS: Microalbumin,Random Urine < 12.0 mg/L (NO RANGE EST.); Microalbumin:Creatinine Ratio UNABLE TO CALCULATE mg/g CRE
== END | disposition home or self-care (01) ==
LOC: MTLAB 11:21
PROVIDERS: PCP Family Medicine; Referring Provider Family Medicine; Visit Provider Family Medicine
DX: I10 Essential (primary) hypertension (principal)
CPT/HCPCS: 36415; 80053; 80061; 82043; 82570

== ENCOUNTER → 2025-02-19 | Outpatient (CLI) | payer MEDICARE, SELFPAY ==
[2025-02-19 10:48] LABS: PSA,Total- Diagnostic < 0.02 ng/mL (0.00-4.00)
== END | disposition home or self-care (01) ==
PROVIDERS: PCP Family Medicine; Referring Provider Urology; Visit Provider Urology
DX: C61 Malignant neoplasm of prostate (principal)
CPT/HCPCS: 36415; 84153

== ENCOUNTER → 2025-05-27 | Outpatient (CLI) | payer MEDICARE, SELFPAY ==
[2025-05-27 12:07] LABS: PSA,Total- Diagnostic < 0.02 ng/mL (0.00-4.00)
== END | disposition home or self-care (01) ==
LOC: LAB 10:51
PROVIDERS: PCP Family Medicine; Referring Provider Urology; Visit Provider Urology
DX: C61 Malignant neoplasm of prostate (principal)
CPT/HCPCS: 36415; 84153

== ENCOUNTER → 2025-06-27 | Outpatient (CLI) | payer MEDICARE, SELFPAY ==
[2025-06-27 15:37] LABS: AST(SGOT) 20 U/L (<=37); Alanine Aminotransfer ALT/SGPT 12 U/L (<=46); Albumin, Serum 3.9 g/dL (3.4-4.8); Alkaline Phosphatase 95 U/L (40-129); Anion Gap 9 (5-15); BUN 13 mg/dL (4-19); BUN/Creat Ratio 19.9 RATIO (10-20); Calcium,Total 10.3 mg/dL (7.6-11.0); Carbon Dioxide 27.4 mmol/L (21.0-32.0); Chloride 101 mmol/L (98-108); Globulin 3.4 g/dL (2.2-4.2); Glucose 106 mg/dL (70-99); Potassium 4.2 mmol/L (3.3-5.1)
== END | disposition home or self-care (01) ==
LOC: MTLAB 11:39
PROVIDERS: PCP Family Medicine; Referring Provider Family Medicine; Visit Provider Family Medicine
DX: E78.5 Hyperlipidemia, unspecified (principal)
CPT/HCPCS: 36415; 80053